=== PATIENT | male | born 1965 | race Caucasian/White ===

== ENCOUNTER 2023-06-02 01:13 | Inpatient (IN) | payer OTHER ==
[2023-06-02 01:34] LABS: #Eosinphils 0.1 thou/uL (0.0-0.7); #Monocytes 0.8 thou/uL (0.11-0.59); #Neutrophils 7.5 thou/uL (1.40-6.50); %Basophils 0.3 % (0.0-1.0); %Eosinophils 0.7 % (0.0-10.0); %Lymphocytes 27.5 % (21.0-51.0); %Monocytes 6.4 % (0.0-10.0); %Neutrophils 63.5 % (42.0-75.0); Hematocrit 42.9 % (42.0-52.0); Hemoglobin 15.1 g/dL (14.0-18.0); Mean Corpuscular HGB CONC 35.2 g/dL (32.0-36.0); Mean Corpuscular Hemoglobin 33.7 pg (27.0-31.0); Mean Corpuscular Volume 95.8 fl (78.0-98.0); Mean Platelet Volume 9.8 fL (7.4-10.4); Platelet Count 190 10x3/uL (130-400); RBC Distribution Width 12.4 % (11.5-14.5); Red Blood Cell (RBC) Count 4.48 mill/uL (4.70-6.10); White Blood Cell (WBC) Count 11.8 10x3/uL (4.8-10.8)
[2023-06-02 01:52] LABS: ALT (SGPT) 243 U/L (8-55); AST (SGOT) 236 U/L (5-34); Albumin 3.6 g/dL (3.5-5.0); Alcohol 232.5 mg/dL (Less than 10); Alkaline Phosphatase 57 U/L (40-110); Anion Gap 18 mmol/L (10-20); BUN (Urea Nitrogen) 12 mg/dL (8.4-25.7); Calc. Creatinine Clearance 0 mL/min (70-130); Calcium 8.1 mg/dL (7.8-10.44); Carbon Dioxide 15 mmol/L (22-29); Chloride 106 mmol/L (98-107); Estimated GFR 81; Globulin 2.4 g/dL (2.4-3.5); Glucose 153 mg/dL (70-105); Potassium 3.6 mmol/L (3.5-5.1); Sodium 135 mmol/L (136-145)
[2023-06-02] MEDS ORDERED: Boostrix 0.5 ML (Tdap) VIAL (>/=7 yrs of age) ONE (01:55)
[2023-06-02] MEDS ORDERED: CEFAZOLIN 2 GM VIAL ONE (01:55)
[2023-06-02] MEDS ORDERED: Calcium Chloride 1 GM/10 ML Abboject SYRINGE ONE ×3 (01:55→02:05)
[2023-06-02 01:58] LABS: Actual Bicarbonate (HCO3a) 19.3 mEq/L (22-28); Analyzer IN Cardio ER; Base Excess (BEa) -7.6 mEq/L (-2.0 to +3.0); CO2 Tension 44.2 mmHg (35.0-45.0); Calcium, Ionized (arterial) 0.83 mmol/L (1.12-1.30); Carboxyhemoglobin (COHb) 2.1 gm% (0.0-3.0); Hematocrit-ABG 44 % (42.0-52.0); Hemoglobin (Hb) 14.8 g/dL (14.0-18.0); O2 Tension (PaO2), arterial 348.3 mmHg (80.0-100.0); Potassium - ABG Lab 3.27 mmol/L (3.70-5.30); pH, Arterial 7.258 (7.35-7.45)
[2023-06-02 01:59] LABS: Puncture Site RBA
[2023-06-02] MEDS ORDERED: Ketamine 50 MG/ML (10ML VIAL) ONE (01:59)
[2023-06-02] MEDS ORDERED: Lidocaine 1% MPF 2 ML VIAL ONE (02:14)
[2023-06-02] MEDS ORDERED: Dextrose 50% Abboject 50 ML SYRINGE SLOW IVP PRN (02:30)
[2023-06-02] MEDS ORDERED: Dextrose 5% in Water 1,000 ML IV PRN (02:30)
[2023-06-02] MEDS ORDERED: Glucagon 1 MG/ML KIT IM PRN (02:30)
[2023-06-02] MEDS ORDERED: Ipratropium/Albuterol 3 ML NEB NEB PRN (02:30)
[2023-06-02] MEDS ORDERED: Ventilator Sedation Protocol 1 EACH FS ONE (02:36)
[2023-06-02] MEDS ORDERED: Morphine 2 MG/ML VIAL SLOW IVP PRN (03:00)
[2023-06-02] MEDS ORDERED: Fentanyl BOLUS 250 ML IVPB PRN (03:00)
[2023-06-02] MEDS ORDERED: DISCONTINUE PREVIOUS NARCOTIC PAIN MEDICATIONS AND BENZODIAZEPINES FS SCH (03:00)
[2023-06-02] MEDS ORDERED: Propofol BOLUS 1,000 MG/100 ML VIAL IV PRN (03:00)
[2023-06-02 03:09] LABS: Bacteria/HPF None Seen HPF (None Seen); Bilirubin Negative (Negative); Blood, Urine 2+ (Negative); CAUTI Indications for Culture Dysuria,urgency,freq; Clarity Clear (Clear); Glucose, Urine (Dipstick) Normal (Negative); Ketone, Urine Negative (Negative); Leukocyte Negative Leu/uL (Negative); Nitrite Negative (Negative); Protein, Urine (Dipstick) 30 mg/dL (Neg-Trace); RBC/HPF 0-3 HPF (0-3); Specific Gravity, Urine 1.012 (1.002-1.036); Squamous Epithelial 0-3 HPF (0-3); Urobilinogen Normal mg/dL (Less than 2); WBC/HPF 0-3 HPF (0-3); pH, Urine 5.5 (5.0-9.0)
[2023-06-02 03:10] LABS: Urine Culture Reflex No No
[2023-06-02] MEDS: Sodium Chloride 0.9% 1,000 ML IV SCH ×3 (05:11→21:03)
[2023-06-02] MEDS: Thiamine HCl 200 MG/2 ML VIAL SLOW IVP SCH (05:17)
[2023-06-02 05:20] LABS: Lactic Acid 2.3 mmol/L (0.5-2.2)
[2023-06-02] MEDS: Lorazepam 2 MG/ML VIAL SLOW IVP PRN (09:45)
[2023-06-02] MEDS: Folic Acid 1 MG TAB PO SCH (10:04)
[2023-06-02] MEDS: Famotidine/PF 20 mg/2ml Vial SLOW IVP SCH ×2 (10:05→21:05)
[2023-06-02] MEDS ORDERED: Iopamidol-370 76% 500 ML MDV (1 ML CHARGE) ONE (11:09)
[2023-06-02] MEDS: Propofol 1,000 MG/100 ML VIAL IV PRN ×2 (11:11→21:04)
[2023-06-02] MEDS: Multivit, Chewable SF 1 TAB PO SCH (11:11)
[2023-06-02 19:36] LABS: Amphetamine Not Detected (NotDetected); Barbiturates Screen Not Detected (NotDetected); Benzodiazepine Screen Not Detected (NotDetected); Cocaine Metabolite Screen Not Detected (NotDetected); Methadone Not Detected (NotDetected); Methamphetamine Not Detected (NotDetected); Opiate Screen Not Detected (NotDetected); Oxycodone Screen Not Detected (NotDetected); Phencyclidine (PCP) Not Detected (NotDetected); THC/Cannabinoid Screen Not Detected (NotDetected); Tricyclic Screen Not Detected (NotDetected)
[2023-06-03] MEDS: Fentanyl CADD 100 ML IV SCH (00:08)
[2023-06-03] MEDS: Sodium Chloride 0.9% 1,000 ML IV SCH ×4 (03:58→20:00)
[2023-06-03] MEDS: Thiamine HCl 200 MG/2 ML VIAL SLOW IVP SCH (04:00)
[2023-06-03 04:17] LABS: #Monocytes 0.8 thou/uL (0.11-0.59); #Neutrophils 4.4 thou/uL (1.40-6.50); %Basophils 0.2 % (0.0-1.0); %Eosinophils 0.2 % (0.0-10.0); %Monocytes 13.5 % (0.0-10.0); %Neutrophils 72.8 % (42.0-75.0); Hematocrit 43.1 % (42.0-52.0); Hemoglobin 14.7 g/dL (14.0-18.0); Mean Corpuscular HGB CONC 34.1 g/dL (32.0-36.0); Mean Corpuscular Hemoglobin 32.7 pg (27.0-31.0); Mean Platelet Volume 10.5 fL (7.4-10.4); Platelet Count 107 10x3/uL (130-400); RBC Distribution Width 13.4 % (11.5-14.5); Red Blood Cell (RBC) Count 4.49 mill/uL (4.70-6.10)
[2023-06-03 04:35] LABS: Lactic Acid 1.6 mmol/L (0.5-2.2)
[2023-06-03 04:43] LABS: ALT (SGPT) 141 U/L (8-55); AST (SGOT) 101 U/L (5-34); Albumin 3.2 g/dL (3.5-5.0); Alkaline Phosphatase 48 U/L (40-110); Anion Gap 10 mmol/L (10-20); BUN (Urea Nitrogen) 12 mg/dL (8.4-25.7); Bilirubin, Total 1.7 mg/dL (0.2-1.2); CK (CPK) 1019 U/L (30-200); Calc. Creatinine Clearance 194 mL/min (70-130); Calcium 8.1 mg/dL (7.8-10.44); Carbon Dioxide 25 mmol/L (22-29); Chloride 110 mmol/L (98-107); Estimated GFR 105; Glucose 97 mg/dL (70-105); Magnesium 1.7 mg/dL (1.6-2.6); Phosphorus 2.4 mg/dL (2.3-4.7); Potassium 4.1 mmol/L (3.5-5.1); Protein, Total 5.2 g/dL (6.0-8.3); Sodium 141 mmol/L (136-145)
[2023-06-03 05:20] LABS: CellaVision Operator ID lab.abc; Platelet Adequacy Comment Platelets Decreased; RBC Morphology Within Normal Limits
[2023-06-03] MEDS ORDERED: Dexmedetomidine 400 MCG, Admixture Fee 1 EACH in Sodium Chloride 0.9% 96 ML IVPB SCH (09:00)
[2023-06-03] MEDS: Famotidine/PF 20 mg/2ml Vial SLOW IVP SCH ×2 (09:22→19:16)
[2023-06-03] MEDS: Folic Acid 1 MG TAB PO SCH (09:22)
[2023-06-03] MEDS: Multivit, Chewable SF 1 TAB PO SCH (09:22)
[2023-06-03] MEDS: Lorazepam 2 MG/ML VIAL SLOW IVP SCH ×3 (09:23→19:16)
[2023-06-03] MEDS: Lorazepam 2 MG/ML VIAL SLOW IVP PRN (14:40)
[2023-06-03] MEDS ORDERED: Sodium Chloride 0.9% 500 ML IV SCH (20:00)
[2023-06-04] MEDS: Propofol 1,000 MG/100 ML VIAL IV PRN ×5 (02:04→22:58)
[2023-06-04] MEDS: Fentanyl CADD 100 ML IV SCH (02:06)
[2023-06-04] MEDS: Sodium Chloride 0.9% 1,000 ML IV SCH ×4 (02:06→22:46)
[2023-06-04] MEDS: Lorazepam 2 MG/ML VIAL SLOW IVP SCH ×4 (02:26→21:05)
[2023-06-04] MEDS: Thiamine HCl 200 MG/2 ML VIAL SLOW IVP SCH (04:02)
[2023-06-04 04:54] LABS: Anion Gap 10 mmol/L (10-20); BUN (Urea Nitrogen) 14 mg/dL (8.4-25.7); Calc. Creatinine Clearance 199 mL/min (70-130); Calcium 8.2 mg/dL (7.8-10.44); Carbon Dioxide 25 mmol/L (22-29); Chloride 111 mmol/L (98-107); Estimated GFR 106; Glucose 96 mg/dL (70-105); Potassium 4.2 mmol/L (3.5-5.1); Sodium 142 mmol/L (136-145)
[2023-06-04] MEDS ORDERED: Calcium Chloride 13.6 MEQ in Sodium Chloride 0.9% 100 ML IVPB SCH (05:45)
[2023-06-04 05:48] LABS: #Monocytes 0.8 thou/uL (0.11-0.59); #Neutrophils 4.6 thou/uL (1.40-6.50); %Basophils 0.3 % (0.0-1.0); %Eosinophils 0.3 % (0.0-10.0); %Lymphocytes 9.8 % (21.0-51.0); %Monocytes 13.3 % (0.0-10.0); Hematocrit 39.4 % (42.0-52.0); Hemoglobin 13.2 g/dL (14.0-18.0); Mean Corpuscular HGB CONC 33.5 g/dL (32.0-36.0); Mean Corpuscular Hemoglobin 32.4 pg (27.0-31.0); Mean Corpuscular Volume 96.8 fl (78.0-98.0); Mean Platelet Volume 10.4 fL (7.4-10.4); RBC Distribution Width 13.3 % (11.5-14.5); Red Blood Cell (RBC) Count 4.07 mill/uL (4.70-6.10)
[2023-06-04 05:50] LABS: Platelet Count 97 10x3/uL (130-400)
[2023-06-04 07:06] LABS: Actual Bicarbonate (HCO3a) 25.3 mEq/L (22-28); Base Excess (BEa) -2.1 mEq/L (-2.0 to +3.0); Calcium, Ionized (arterial) 1.16 mmol/L (1.12-1.30); Hematocrit-ABG 41 % (42.0-52.0); Hemoglobin (Hb) 14.1 g/dL (14.0-18.0); O2 Tension (PaO2), arterial 63.1 mmHg (80.0-100.0); Potassium - ABG Lab 4.01 mmol/L (3.70-5.30); pH, Arterial 7.288 (7.35-7.45)
[2023-06-04 07:14] LABS: Puncture Site RRA
[2023-06-04] MEDS: Folic Acid 1 MG TAB PO SCH (08:32)
[2023-06-04] MEDS: Famotidine/PF 20 mg/2ml Vial SLOW IVP SCH ×2 (08:32→20:38)
[2023-06-04] MEDS: Multivit, Chewable SF 1 TAB PO SCH (09:46)
[2023-06-05 04:28] LABS: #Eosinphils 0.1 thou/uL (0.0-0.7); #Monocytes 0.7 thou/uL (0.11-0.59); #Neutrophils 3.7 thou/uL (1.40-6.50); %Basophils 0.6 % (0.0-1.0); %Eosinophils 2.2 % (0.0-10.0); %Lymphocytes 9.6 % (21.0-51.0); %Monocytes 13.7 % (0.0-10.0); %Neutrophils 73.5 % (42.0-75.0); Hematocrit 37.4 % (42.0-52.0); Hemoglobin 12.5 g/dL (14.0-18.0); Mean Corpuscular HGB CONC 33.4 g/dL (32.0-36.0); Mean Corpuscular Hemoglobin 32.4 pg (27.0-31.0); Mean Corpuscular Volume 96.9 fl (78.0-98.0); Mean Platelet Volume 10.4 fL (7.4-10.4); Platelet Count 103 10x3/uL (130-400); RBC Distribution Width 13.1 % (11.5-14.5); Red Blood Cell (RBC) Count 3.86 mill/uL (4.70-6.10)
[2023-06-05] MEDS: Lorazepam 2 MG/ML VIAL SLOW IVP SCH ×4 (04:42→20:08)
[2023-06-05 04:47] LABS: Anion Gap 12 mmol/L (10-20); BUN (Urea Nitrogen) 14 mg/dL (8.4-25.7); CK (CPK) 352 U/L (30-200); Calc. Creatinine Clearance 222 mL/min (70-130); Calcium 8.3 mg/dL (7.8-10.44); Carbon Dioxide 25 mmol/L (22-29); Chloride 110 mmol/L (98-107); Estimated GFR 109; Glucose 82 mg/dL (70-105); Potassium 3.8 mmol/L (3.5-5.1); Sodium 143 mmol/L (136-145)
[2023-06-05] MEDS: Thiamine HCl 200 MG/2 ML VIAL SLOW IVP SCH (05:03)
[2023-06-05] MEDS: Sodium Chloride 0.9% 1,000 ML IV SCH ×3 (05:03→17:08)
[2023-06-05] MEDS: Propofol 1,000 MG/100 ML VIAL IV PRN ×4 (06:02→20:11)
[2023-06-05 08:07] LABS: Actual Bicarbonate (HCO3a) 23.2 mEq/L (22-28); Base Excess (BEa) -2.5 mEq/L (-2.0 to +3.0); CO2 Tension 43.4 mmHg (35.0-45.0); Calcium, Ionized (arterial) 1.15 mmol/L (1.12-1.30); Carboxyhemoglobin (COHb) 0.7 gm% (0.0-3.0); Hematocrit-ABG 41 % (42.0-52.0); Hemoglobin (Hb) 13.8 g/dL (14.0-18.0); Potassium - ABG Lab 3.66 mmol/L (3.70-5.30); pH, Arterial 7.345 (7.35-7.45)
[2023-06-05 08:20] LABS: Puncture Site LRA
[2023-06-05] MEDS: Folic Acid 1 MG TAB PO SCH (09:41)
[2023-06-05] MEDS: Multivit, Chewable SF 1 TAB PO SCH (09:42)
[2023-06-05] MEDS: Famotidine/PF 20 mg/2ml Vial SLOW IVP SCH ×2 (09:42→20:11)
[2023-06-05] MEDS ORDERED: Fentanyl CADD 100 ML ONE (18:08)
[2023-06-06] MEDS: Sodium Chloride 0.9% 1,000 ML IV SCH ×3 (00:29→12:11)
[2023-06-06] MEDS: Lorazepam 2 MG/ML VIAL SLOW IVP SCH ×4 (02:34→21:55)
[2023-06-06] MEDS: Propofol 1,000 MG/100 ML VIAL IV PRN ×2 (02:56→12:14)
[2023-06-06 04:19] LABS: Anion Gap 10 mmol/L (10-20); BUN (Urea Nitrogen) 16 mg/dL (8.4-25.7); Calc. Creatinine Clearance 208 mL/min (70-130); Calcium 8.1 mg/dL (7.8-10.44); Carbon Dioxide 28 mmol/L (22-29); Chloride 113 mmol/L (98-107); Estimated GFR 107; Glucose 111 mg/dL (70-105); Potassium 3.7 mmol/L (3.5-5.1); Sodium 147 mmol/L (136-145)
[2023-06-06] MEDS: Thiamine HCl 200 MG/2 ML VIAL SLOW IVP SCH (05:42)
[2023-06-06] MEDS ORDERED: Vecuronium 10 MG VIAL IVP SCH (06:00)
[2023-06-06] MEDS ORDERED: Midazolam HCl 2 mg/2 ml Vial SLOW IVP SCH (06:00)
[2023-06-06 08:01] LABS: Actual Bicarbonate (HCO3a) 27.2 mEq/L (22-28); Base Excess (BEa) 1.5 mEq/L (-2.0 to +3.0); CO2 Tension 47.2 mmHg (35.0-45.0); Calcium, Ionized (arterial) 1.14 mmol/L (1.12-1.30); Carboxyhemoglobin (COHb) 0.5 gm% (0.0-3.0); Hematocrit-ABG 38 % (42.0-52.0); O2 Tension (PaO2), arterial 75.5 mmHg (80.0-100.0); pH, Arterial 7.379 (7.35-7.45)
[2023-06-06 08:02] LABS: Puncture Site RRA
[2023-06-06] MEDS ORDERED: Sterile Water 10 ML ONE (08:53)
[2023-06-06] MEDS: Multivit, Chewable SF 1 TAB PO SCH (09:55)
[2023-06-06] MEDS: Folic Acid 1 MG TAB PO SCH (09:56)
[2023-06-06] MEDS ORDERED: Piperacillin/Tazobactam 3.375 GM in Sodium Chloride 0.9% 100 ML IVPB SCH (11:30)
[2023-06-06] MEDS ORDERED: Piperacillin/Tazobactam 4.5 GM in Sodium Chloride 0.9% 100 ML IVPB SCH (12:00)
[2023-06-06] MEDS: Famotidine/PF 20 mg/2ml Vial SLOW IVP SCH ×2 (12:07→21:57)
[2023-06-06] MEDS: Piperacillin/Tazobactam 3.375 GM in Sodium Chloride 0.9% 100 ML IVPB SCH (16:21)
[2023-06-07] MEDS: Piperacillin/Tazobactam 3.375 GM in Sodium Chloride 0.9% 100 ML IVPB SCH ×3 (01:20→16:26)
[2023-06-07] MEDS: Sodium Chloride 0.9% 1,000 ML IV SCH ×3 (02:43→15:00)
[2023-06-07] MEDS: Lorazepam 2 MG/ML VIAL SLOW IVP SCH ×4 (02:53→22:00)
[2023-06-07 04:30] LABS: Anion Gap 11 mmol/L (10-20); BUN (Urea Nitrogen) 19 mg/dL (8.4-25.7); Calc. Creatinine Clearance 207 mL/min (70-130); Calcium 8.4 mg/dL (7.8-10.44); Carbon Dioxide 28 mmol/L (22-29); Chloride 111 mmol/L (98-107); Estimated GFR 106; Glucose 134 mg/dL (70-105); Potassium 3.6 mmol/L (3.5-5.1); Sodium 146 mmol/L (136-145)
[2023-06-07] MEDS: Thiamine HCl 200 MG/2 ML VIAL SLOW IVP SCH (05:40)
[2023-06-07 07:44] LABS: Actual Bicarbonate (HCO3a) 28.1 mEq/L (22-28); Base Excess (BEa) 1.9 mEq/L (-2.0 to +3.0); CO2 Tension 50.1 mmHg (35.0-45.0); Calcium, Ionized (arterial) 1.14 mmol/L (1.12-1.30); Carboxyhemoglobin (COHb) 0.4 gm% (0.0-3.0); Hematocrit-ABG 39 % (42.0-52.0); Hemoglobin (Hb) 13.2 g/dL (14.0-18.0); O2 Tension (PaO2), arterial 85.2 mmHg (80.0-100.0); Potassium - ABG Lab 3.66 mmol/L (3.70-5.30); pH, Arterial 7.366 (7.35-7.45)
[2023-06-07 07:46] LABS: ALV-art Gradient 208.675 mmHg (0-20); Puncture Site RRA
[2023-06-07] MEDS: Famotidine/PF 20 mg/2ml Vial SLOW IVP SCH ×2 (08:15→22:00)
[2023-06-07] MEDS: Multivit, Chewable SF 1 TAB PO SCH (08:16)
[2023-06-07] MEDS: Folic Acid 1 MG TAB PO SCH (08:16)
[2023-06-07] MEDS ORDERED: Furosemide 40 MG/4 ML VIAL SLOW IVP SCH ×2 (08:30→17:00)
[2023-06-07] MEDS: hydrALAZINE 20 MG/ML VIAL SLOW IVP PRN ×2 (14:47→15:07)
[2023-06-07] MEDS: Lorazepam 2 MG/ML VIAL SLOW IVP PRN (15:10)
[2023-06-07] MEDS: Labetalol HCl 100 MG/20 ML VIAL SLOW IVP PRN (15:37)
[2023-06-07] MEDS ORDERED: niCARdipine 25 MG in Sodium Chloride 0.9% 250 ML 250 ML IVPB SCH (16:00)
[2023-06-07] MEDS: niCARdipine 25 MG in Sodium Chloride 0.9% 250 ML 250 ML IVPB PRN ×2 (16:24→18:33)
[2023-06-07] MEDS ORDERED: FENTANYL 500 MCG/10 ML VIAL 2,000 MCG in Sodium Chloride 0.9% 60 ML IV PRN (16:55)
[2023-06-07] MEDS: Fentanyl CADD 100 ML IV SCH (17:16)
[2023-06-07 18:18] LABS: Anion Gap 12 mmol/L (10-20); BUN (Urea Nitrogen) 26 mg/dL (8.4-25.7); Calc. Creatinine Clearance 200 mL/min (70-130); Calcium 8.9 mg/dL (7.8-10.44); Carbon Dioxide 30 mmol/L (22-29); Chloride 106 mmol/L (98-107); Estimated GFR 105; Glucose 195 mg/dL (70-105); Phosphorus 2.3 mg/dL (2.3-4.7); Potassium 3.1 mmol/L (3.5-5.1); Sodium 145 mmol/L (136-145)
[2023-06-07] MEDS: Potassium Chloride 20 MEQ in Premix Bag 1 BAG IVPB SCH ×3 (18:38→23:07)
[2023-06-07] MEDS ORDERED: niCARdipine 50 MG, Admixture Fee 1 EACH in Sodium Chloride 0.9% 250 ML 230 ML IVPB PRN (18:47)
[2023-06-08] MEDS: Piperacillin/Tazobactam 3.375 GM in Sodium Chloride 0.9% 100 ML IVPB SCH ×3 (00:48→17:19)
[2023-06-08] MEDS: Potassium Chloride 20 MEQ in Premix Bag 1 BAG IVPB SCH (00:48)
[2023-06-08 03:59] LABS: #Eosinphils 0.1 thou/uL (0.0-0.7); %Basophils 0.4 % (0.0-1.0); %Eosinophils 0.9 % (0.0-10.0); %Lymphocytes 10.1 % (21.0-51.0); %Monocytes 12.3 % (0.0-10.0); %Neutrophils 74.7 % (42.0-75.0); Hematocrit 37.3 % (42.0-52.0); Hemoglobin 12.5 g/dL (14.0-18.0); Mean Corpuscular HGB CONC 33.5 g/dL (32.0-36.0); Mean Corpuscular Hemoglobin 31.9 pg (27.0-31.0); Mean Corpuscular Volume 95.2 fl (78.0-98.0); Mean Platelet Volume 10.3 fL (7.4-10.4); Platelet Count 162 10x3/uL (130-400); RBC Distribution Width 12.6 % (11.5-14.5); Red Blood Cell (RBC) Count 3.92 mill/uL (4.70-6.10)
[2023-06-08 04:25] LABS: Anion Gap 10 mmol/L (10-20); BUN (Urea Nitrogen) 31 mg/dL (8.4-25.7); Calc. Creatinine Clearance 200 mL/min (70-130); Calcium 9.1 mg/dL (7.8-10.44); Carbon Dioxide 35 mmol/L (22-29); Chloride 106 mmol/L (98-107); Estimated GFR 105; Glucose 127 mg/dL (70-105); Magnesium 2.2 mg/dL (1.6-2.6); Potassium 3.5 mmol/L (3.5-5.1); Sodium 147 mmol/L (136-145)
[2023-06-08 04:28] LABS: Phosphorus 2.3 mg/dL (2.3-4.7)
[2023-06-08] MEDS ORDERED: Electrolyte Replacement Protocol 1 EACH FS SCH (09:00)
[2023-06-08] MEDS ORDERED: Potassium Chloride 20 MEQ TAB PER TUBE SCH (09:15)
[2023-06-08] MEDS: Lorazepam 2 MG/ML VIAL SLOW IVP SCH ×3 (09:18→20:50)
[2023-06-08] MEDS: Polyethylene Glycol 3350 17 GM Packet PER TUBE SCH (09:19)
[2023-06-08] MEDS: Famotidine/PF 20 mg/2ml Vial SLOW IVP SCH ×2 (09:19→20:49)
[2023-06-08] MEDS: Amlodipine 5 MG TAB PER TUBE SCH (09:19)
[2023-06-08] MEDS: Senokot S 8.6-50 MG TAB PO SCH ×2 (09:19→20:49)
[2023-06-08] MEDS: Labetalol HCl 100 MG/20 ML VIAL SLOW IVP PRN (21:16)
[2023-06-09] MEDS: Piperacillin/Tazobactam 3.375 GM in Sodium Chloride 0.9% 100 ML IVPB SCH ×3 (01:12→17:05)
[2023-06-09 03:50] LABS: #Eosinphils 0.2 thou/uL (0.0-0.7); #Neutrophils 5.3 thou/uL (1.40-6.50); %Basophils 0.4 % (0.0-1.0); %Eosinophils 2.4 % (0.0-10.0); %Lymphocytes 13.2 % (21.0-51.0); %Monocytes 12.6 % (0.0-10.0); %Neutrophils 69.3 % (42.0-75.0); Hematocrit 37.1 % (42.0-52.0); Hemoglobin 12.6 g/dL (14.0-18.0); Mean Corpuscular Hemoglobin 32.7 pg (27.0-31.0); Mean Corpuscular Volume 96.4 fl (78.0-98.0); Mean Platelet Volume 10.2 fL (7.4-10.4); Platelet Count 166 10x3/uL (130-400); RBC Distribution Width 12.8 % (11.5-14.5); Red Blood Cell (RBC) Count 3.85 mill/uL (4.70-6.10); White Blood Cell (WBC) Count 7.6 10x3/uL (4.8-10.8)
[2023-06-09] MEDS: hydrALAZINE 20 MG/ML VIAL SLOW IVP PRN ×4 (04:04→21:54)
[2023-06-09 04:11] LABS: Phosphorus 3.5 mg/dL (2.3-4.7)
[2023-06-09 04:12] LABS: Anion Gap 12 mmol/L (10-20); BUN (Urea Nitrogen) 34 mg/dL (8.4-25.7); Calc. Creatinine Clearance 213 mL/min (70-130); Calcium 8.7 mg/dL (7.8-10.44); Carbon Dioxide 32 mmol/L (22-29); Chloride 109 mmol/L (98-107); Estimated GFR 107; Glucose 137 mg/dL (70-105); Magnesium 2.3 mg/dL (1.6-2.6); Potassium 3.6 mmol/L (3.5-5.1); Sodium 149 mmol/L (136-145)
[2023-06-09] MEDS: Lorazepam 2 MG/ML VIAL SLOW IVP SCH (09:52)
[2023-06-09] MEDS: Polyethylene Glycol 3350 17 GM Packet PER TUBE SCH (09:53)
[2023-06-09] MEDS: Senokot S 8.6-50 MG TAB PO SCH ×2 (09:53→21:03)
[2023-06-09] MEDS: Amlodipine 5 MG TAB PER TUBE SCH (09:56)
[2023-06-09] MEDS: Famotidine/PF 20 mg/2ml Vial SLOW IVP SCH ×2 (09:57→21:01)
[2023-06-09] MEDS ORDERED: Morphine 4 MG/ML VIAL SLOW IVP SCH (11:45)
[2023-06-09] MEDS: Labetalol HCl 100 MG/20 ML VIAL SLOW IVP PRN ×2 (15:03→19:41)
[2023-06-09] MEDS: Morphine 2 MG/ML VIAL SLOW IVP PRN ×2 (17:05→21:06)
[2023-06-09] MEDS: Lorazepam 2 MG/ML VIAL SLOW IVP PRN (19:39)
[2023-06-09] MEDS: Amantadine HCl 100 mg Capsule PO SCH (21:03)
[2023-06-09] MEDS ORDERED: Metoclopramide HCl 10 MG/2 ML VIAL IVP SCH (22:15)
[2023-06-10] MEDS: Labetalol HCl 100 MG/20 ML VIAL SLOW IVP PRN ×2 (00:30→21:54)
[2023-06-10] MEDS: Morphine 2 MG/ML VIAL SLOW IVP PRN ×4 (01:09→18:02)
[2023-06-10] MEDS: hydrALAZINE 20 MG/ML VIAL SLOW IVP PRN ×3 (01:10→04:26)
[2023-06-10] MEDS: Piperacillin/Tazobactam 3.375 GM in Sodium Chloride 0.9% 100 ML IVPB SCH ×3 (01:11→16:59)
[2023-06-10 04:16] LABS: Hematocrit 45.9 % (42.0-52.0); Hemoglobin 15.4 g/dL (14.0-18.0); Mean Corpuscular HGB CONC 33.6 g/dL (32.0-36.0); Mean Corpuscular Hemoglobin 31.8 pg (27.0-31.0); Mean Corpuscular Volume 94.6 fl (78.0-98.0); Mean Platelet Volume 9.9 fL (7.4-10.4); Platelet Count 242 10x3/uL (130-400); RBC Distribution Width 13.2 % (11.5-14.5); Red Blood Cell (RBC) Count 4.85 mill/uL (4.70-6.10); White Blood Cell (WBC) Count 12.6 10x3/uL (4.8-10.8)
[2023-06-10 04:20] LABS: Delete Auto Diff?? YES; Manual Diff?? YES
[2023-06-10] MEDS: Lorazepam 2 MG/ML VIAL SLOW IVP PRN ×3 (04:24→21:54)
[2023-06-10 04:37] LABS: Anion Gap 15 mmol/L (10-20); BUN (Urea Nitrogen) 33 mg/dL (8.4-25.7); Calc. Creatinine Clearance 203 mL/min (70-130); Calcium 9.1 mg/dL (7.8-10.44); Carbon Dioxide 27 mmol/L (22-29); Chloride 112 mmol/L (98-107); Estimated GFR 105; Glucose 156 mg/dL (70-105); Potassium 3.5 mmol/L (3.5-5.1); Sodium 150 mmol/L (136-145)
[2023-06-10 04:47] LABS: Band 7 % (5-11); CellaVision Operator ID LAB.CLH1; Lymphocytes 4 % (21-51); Monocytes 4 % (0-10); Neutrophil 83 % (42-75); Platelet Adequacy Comment Platelets Normal; Polychromasia SLIGHT = 2-3 cells HPF (0-2); Reactive Lymphocytes 2 % (0-10); Total Cell Count 101
[2023-06-10] MEDS: Potassium Chloride 20 MEQ in Premix Bag 1 BAG IVPB SCH ×2 (08:25→10:43)
[2023-06-10] MEDS: Amantadine HCl 100 mg Capsule PO SCH ×2 (08:26→20:19)
[2023-06-10] MEDS: Famotidine/PF 20 mg/2ml Vial SLOW IVP SCH ×2 (08:26→20:24)
[2023-06-10] MEDS: Amlodipine 5 MG TAB PER TUBE SCH (08:26)
[2023-06-10] MEDS: Senokot S 8.6-50 MG TAB PO SCH ×2 (08:27→20:18)
[2023-06-10] MEDS: Polyethylene Glycol 3350 17 GM Packet PER TUBE SCH (08:27)
[2023-06-10] MEDS ORDERED: Acetaminophen/Codeine 30-300mg Tablet PO PRN (10:25)
[2023-06-10] MEDS ORDERED: Dexmedetomidine In 0.9 % NaCl 100 ML IVPB SCH (10:30)
[2023-06-10] MEDS: traMADol HCl 50 MG TAB PO SCH ×2 (10:42→16:59)
[2023-06-10] MEDS: Dexmedetomidine 400 MCG, Admixture Fee 1 EACH in Sodium Chloride 0.9% 96 ML IVPB SCH ×2 (11:03→20:19)
[2023-06-10] MEDS: tiZANidine HCl 4 MG TAB PO SCH ×2 (14:56→20:18)
[2023-06-10 16:49] LABS: Potassium 3.6 mmol/L (3.5-5.1)
[2023-06-10] MEDS: Metoclopramide HCl 10 MG/2 ML VIAL IVP SCH (20:34)
[2023-06-11] MEDS: traMADol HCl 50 MG TAB PO SCH ×2 (00:13→05:12)
[2023-06-11] MEDS: Piperacillin/Tazobactam 3.375 GM in Sodium Chloride 0.9% 100 ML IVPB SCH ×3 (01:01→17:15)
[2023-06-11 04:10] LABS: #Basophils 0.1 thou/uL (0.0-0.2); #Monocytes 1.3 thou/uL (0.11-0.59); #Neutrophils 11.3 thou/uL (1.40-6.50); %Basophils 0.5 % (0.0-1.0); %Eosinophils 0.1 % (0.0-10.0); %Lymphocytes 8.2 % (21.0-51.0); %Neutrophils 80.9 % (42.0-75.0); Hematocrit 45.5 % (42.0-52.0); Mean Corpuscular Hemoglobin 31.9 pg (27.0-31.0); Mean Corpuscular Volume 96.8 fl (78.0-98.0); Mean Platelet Volume 10.3 fL (7.4-10.4); Platelet Count 220 10x3/uL (130-400); RBC Distribution Width 13.2 % (11.5-14.5); White Blood Cell (WBC) Count 13.9 10x3/uL (4.8-10.8)
[2023-06-11 04:32] LABS: Phosphorus 3.9 mg/dL (2.3-4.7)
[2023-06-11 04:41] LABS: Anion Gap 15 mmol/L (10-20); BUN (Urea Nitrogen) 41 mg/dL (8.4-25.7); Calc. Creatinine Clearance 168 mL/min (70-130); Calcium 8.4 mg/dL (7.8-10.44); Carbon Dioxide 29 mmol/L (22-29); Chloride 112 mmol/L (98-107); Estimated GFR 101; Glucose 142 mg/dL (70-105); Magnesium 2.5 mg/dL (1.6-2.6); Potassium 3.3 mmol/L (3.5-5.1)
[2023-06-11 04:42] LABS: Sodium 153 mmol/L (136-145)
[2023-06-11] MEDS: Metoclopramide HCl 10 MG/2 ML VIAL IVP SCH (05:11)
[2023-06-11] MEDS: Morphine 2 MG/ML VIAL SLOW IVP PRN (07:07)
[2023-06-11] MEDS: Potassium Chloride 20 MEQ in Premix Bag 1 BAG IVPB SCH ×2 (07:52→09:55)
[2023-06-11] MEDS: Amlodipine 5 MG TAB PER TUBE SCH (08:00)
[2023-06-11] MEDS: tiZANidine HCl 4 MG TAB PO SCH ×3 (08:00→20:00)
[2023-06-11] MEDS ORDERED: Potassium Chloride 20 MEQ TAB PO SCH (08:00)
[2023-06-11] MEDS: Famotidine/PF 20 mg/2ml Vial SLOW IVP SCH ×2 (08:01→20:00)
[2023-06-11] MEDS: Amantadine HCl 100 mg Capsule PO SCH ×2 (08:01→20:00)
[2023-06-11] MEDS: Senokot S 8.6-50 MG TAB PO SCH ×2 (08:01→20:00)
[2023-06-11] MEDS: Polyethylene Glycol 3350 17 GM Packet PER TUBE SCH (08:02)
[2023-06-11] MEDS ORDERED: GASTROGRAFIN 30 ML BOT ONE (09:05)
[2023-06-11] MEDS ORDERED: Iopamidol-370 76% 500 ML MDV (1 ML CHARGE) ONE (09:05)
[2023-06-11] MEDS: Lorazepam 2 MG/ML VIAL SLOW IVP PRN (10:24)
[2023-06-11] MEDS ORDERED: Metoclopramide HCl 10 MG/2 ML VIAL IVP SCH (12:00)
[2023-06-11] MEDS: Neostigmine 0.5 MG in Admixture Fee 1 EACH SC SCH ×2 (13:36→19:55)
[2023-06-11] MEDS: Dexmedetomidine 400 MCG, Admixture Fee 1 EACH in Sodium Chloride 0.9% 96 ML IVPB SCH (14:02)
[2023-06-11] MEDS: Scopolamine 1.5 mg/72 hour Patch TD SCH (15:12)
[2023-06-11] MEDS: Ondansetron PF 4 MG/2 ML Vial IVP PRN (15:12)
[2023-06-11] MEDS ORDERED: Dextrose 5 %-0.45 % NaCl 1,000 ML IV SCH (17:30)
[2023-06-12] MEDS: Neostigmine 0.5 MG in Admixture Fee 1 EACH SC SCH ×4 (01:55→20:12)
[2023-06-12] MEDS: Piperacillin/Tazobactam 3.375 GM in Sodium Chloride 0.9% 100 ML IVPB SCH ×3 (01:55→16:30)
[2023-06-12 04:19] LABS: Anion Gap 13 mmol/L (10-20); BUN (Urea Nitrogen) 40 mg/dL (8.4-25.7); Calc. Creatinine Clearance 159 mL/min (70-130); Calcium 8.6 mg/dL (7.8-10.44); Carbon Dioxide 31 mmol/L (22-29); Chloride 112 mmol/L (98-107); Estimated GFR 100; Glucose 135 mg/dL (70-105); Potassium 3.5 mmol/L (3.5-5.1)
[2023-06-12 04:23] LABS: Sodium 152 mmol/L (136-145)
[2023-06-12] MEDS ORDERED: Dextrose 5 %-0.45 % NaCl 1,000 ML IV SCH (04:26)
[2023-06-12] MEDS: Morphine 2 MG/ML VIAL SLOW IVP PRN ×2 (04:49→10:55)
[2023-06-12] MEDS: Dextrose 5% in Water 1,000 ML IV SCH ×2 (07:58→22:41)
[2023-06-12] MEDS: Dexmedetomidine 400 MCG, Admixture Fee 1 EACH in Sodium Chloride 0.9% 96 ML IVPB SCH ×2 (07:59→17:15)
[2023-06-12] MEDS: Potassium Chloride 20 MEQ in Premix Bag 1 BAG IVPB SCH ×2 (07:59→10:17)
[2023-06-12] MEDS: Senokot S 8.6-50 MG TAB PO SCH ×2 (08:00→20:11)
[2023-06-12] MEDS ORDERED: Potassium Bicarbonate/Cit Ac 20 MEQ TAB PER TUBE SCH (08:00)
[2023-06-12] MEDS: tiZANidine HCl 4 MG TAB PO SCH ×3 (08:00→20:12)
[2023-06-12] MEDS: Famotidine/PF 20 mg/2ml Vial SLOW IVP SCH ×2 (08:00→20:11)
[2023-06-12] MEDS: Amlodipine 5 MG TAB PER TUBE SCH (08:00)
[2023-06-12] MEDS: Polyethylene Glycol 3350 17 GM Packet PER TUBE SCH (08:01)
[2023-06-12] MEDS: Amlodipine 10 MG TAB PER TUBE SCH (08:37)
[2023-06-12] MEDS: Hydrochlorothiazide 25 MG TAB PER TUBE SCH (09:12)
[2023-06-12] MEDS: Azithromycin 500 MG in Sodium Chloride 0.9% 250 ML 250 ML IVPB SCH (11:02)
[2023-06-12 16:39] LABS: Potassium 3.7 mmol/L (3.5-5.1)
[2023-06-13] MEDS: Piperacillin/Tazobactam 3.375 GM in Sodium Chloride 0.9% 100 ML IVPB SCH ×3 (00:05→16:56)
[2023-06-13] MEDS: Neostigmine 0.5 MG in Admixture Fee 1 EACH SC SCH ×4 (01:00→20:15)
[2023-06-13] MEDS: Morphine 2 MG/ML VIAL SLOW IVP PRN ×3 (01:16→15:37)
[2023-06-13 04:41] LABS: #Basophils 0.1 thou/uL (0.0-0.2); #Eosinphils 0.2 thou/uL (0.0-0.7); #Monocytes 0.9 thou/uL (0.11-0.59); #Neutrophils 12.2 thou/uL (1.40-6.50); %Basophils 0.4 % (0.0-1.0); %Monocytes 6.4 % (0.0-10.0); %Neutrophils 82.7 % (42.0-75.0); Hemoglobin 13.1 g/dL (14.0-18.0); Mean Platelet Volume 10.7 fL (7.4-10.4); Platelet Count 203 10x3/uL (130-400); RBC Distribution Width 13.1 % (11.5-14.5); White Blood Cell (WBC) Count 14.7 10x3/uL (4.8-10.8)
[2023-06-13 05:03] LABS: Anion Gap 13 mmol/L (10-20); BUN (Urea Nitrogen) 31 mg/dL (8.4-25.7); Calc. Creatinine Clearance 174 mL/min (70-130); Calcium 8.4 mg/dL (7.8-10.44); Carbon Dioxide 31 mmol/L (22-29); Chloride 112 mmol/L (98-107); Estimated GFR 102; Glucose 128 mg/dL (70-105); Potassium 3.7 mmol/L (3.5-5.1)
[2023-06-13 05:19] LABS: Sodium 152 mmol/L (136-145)
[2023-06-13] MEDS: Dextrose 5% in Water 1,000 ML IV SCH ×4 (05:47→20:55)
[2023-06-13] MEDS: Famotidine/PF 20 mg/2ml Vial SLOW IVP SCH ×2 (08:16→20:15)
[2023-06-13] MEDS: tiZANidine HCl 4 MG TAB PO SCH ×3 (08:18→20:15)
[2023-06-13] MEDS: Amlodipine 10 MG TAB PER TUBE SCH (08:18)
[2023-06-13] MEDS: Hydrochlorothiazide 25 MG TAB PER TUBE SCH (08:19)
[2023-06-13] MEDS: Senokot S 8.6-50 MG TAB PO SCH ×2 (08:39→20:16)
[2023-06-13] MEDS: Polyethylene Glycol 3350 17 GM Packet PER TUBE SCH (08:39)
[2023-06-13] MEDS ORDERED: Potassium Chloride 40 MEQ in Premix Bag 1 BAG IVPB SCH (09:45)
[2023-06-13] MEDS: Potassium Chloride 20 MEQ in Premix Bag 1 BAG IVPB SCH ×2 (10:18→11:59)
[2023-06-13] MEDS: Metoclopramide HCl 10 MG/2 ML VIAL IVP SCH ×3 (10:18→22:02)
[2023-06-13] MEDS: Azithromycin 500 MG in Sodium Chloride 0.9% 250 ML 250 ML IVPB SCH (11:57)
[2023-06-14] MEDS: Piperacillin/Tazobactam 3.375 GM in Sodium Chloride 0.9% 100 ML IVPB SCH ×2 (00:25→08:54)
[2023-06-14] MEDS: Lorazepam 2 MG/ML VIAL SLOW IVP PRN ×2 (00:27→20:58)
[2023-06-14] MEDS: Neostigmine 0.5 MG in Admixture Fee 1 EACH SC SCH ×2 (02:56→08:00)
[2023-06-14] MEDS: Metoclopramide HCl 10 MG/2 ML VIAL IVP SCH ×4 (03:00→21:08)
[2023-06-14 04:23] LABS: #Eosinphils 0.3 thou/uL (0.0-0.7); #Monocytes 0.6 thou/uL (0.11-0.59); #Neutrophils 6.8 thou/uL (1.40-6.50); %Basophils 0.4 % (0.0-1.0); %Lymphocytes 17.1 % (21.0-51.0); %Monocytes 6.7 % (0.0-10.0); %Neutrophils 72.2 % (42.0-75.0); Hematocrit 37.2 % (42.0-52.0); Hemoglobin 12.2 g/dL (14.0-18.0); Mean Corpuscular HGB CONC 32.8 g/dL (32.0-36.0); Mean Corpuscular Hemoglobin 31.8 pg (27.0-31.0); Mean Corpuscular Volume 96.9 fl (78.0-98.0); Mean Platelet Volume 10.7 fL (7.4-10.4); Platelet Count 177 10x3/uL (130-400); RBC Distribution Width 13.1 % (11.5-14.5); Red Blood Cell (RBC) Count 3.84 mill/uL (4.70-6.10); White Blood Cell (WBC) Count 9.4 10x3/uL (4.8-10.8)
[2023-06-14 04:40] LABS: INR-International Normal Ratio 1.2; Prothrombin Time 15.3 sec (12.0-14.7)
[2023-06-14 04:58] LABS: Phosphorus 3.5 mg/dL (2.3-4.7)
[2023-06-14 05:14] LABS: Anion Gap 11 mmol/L (10-20); BUN (Urea Nitrogen) 24 mg/dL (8.4-25.7); Calc. Creatinine Clearance 187 mL/min (70-130); Carbon Dioxide 30 mmol/L (22-29); Chloride 108 mmol/L (98-107); Potassium 3.5 mmol/L (3.5-5.1); Sodium 145 mmol/L (136-145)
[2023-06-14 05:15] LABS: ALT (SGPT) 62 U/L (8-55); AST (SGOT) 50 U/L (5-34); Albumin 2.9 g/dL (3.5-5.0); Alkaline Phosphatase 59 U/L (40-110); Bilirubin, Total 1.9 mg/dL (0.2-1.2); Calcium 8.3 mg/dL (7.8-10.44); Cholesterol 97 mg/dl (< 200 Desired); Estimated GFR 104; Globulin 2.3 g/dL (2.4-3.5); Glucose 106 mg/dL (70-105); HDL Cholesterol 17 mg/dL (>60 Neg Risk); Magnesium 2.2 mg/dL (1.6-2.6); Protein, Total 5.2 g/dL (6.0-8.3); Triglycerides 128 mg/dL (Less than 150)
[2023-06-14 05:16] LABS: Cardiac Risk 5.7 (Less than 4.5); LDL Cholesterol, Calculated 54 mg/dL
[2023-06-14] MEDS: Amlodipine 10 MG TAB PER TUBE SCH (08:55)
[2023-06-14] MEDS: Senokot S 8.6-50 MG TAB PO SCH ×2 (08:55→20:58)
[2023-06-14] MEDS: tiZANidine HCl 4 MG TAB PO SCH (08:55)
[2023-06-14] MEDS: Famotidine 20 MG TAB PER TUBE SCH ×2 (09:30→20:58)
[2023-06-14] MEDS: Polyethylene Glycol 3350 17 GM Packet PER TUBE SCH (09:31)
[2023-06-14] MEDS: Potassium Chloride 20 MEQ in Premix Bag 1 BAG IVPB SCH ×2 (09:31→11:00)
[2023-06-14] MEDS: Morphine 2 MG/ML VIAL SLOW IVP PRN ×2 (10:12→17:07)
[2023-06-14] MEDS: Dextrose 5% in Water 1,000 ML IV SCH ×2 (12:00→17:15)
[2023-06-14] MEDS: Scopolamine 1.5 mg/72 hour Patch TD SCH (15:12)
[2023-06-15] MEDS: Morphine 2 MG/ML VIAL SLOW IVP PRN ×2 (00:28→09:11)
[2023-06-15] MEDS: Dexmedetomidine 400 MCG, Admixture Fee 1 EACH in Sodium Chloride 0.9% 96 ML IVPB SCH ×3 (01:36→20:19)
[2023-06-15] MEDS: Metoclopramide HCl 10 MG/2 ML VIAL IVP SCH ×4 (03:48→21:31)
[2023-06-15] MEDS: Dextrose 5% in Water 1,000 ML IV SCH ×2 (03:49→14:50)
[2023-06-15 06:45] LABS: #Eosinphils 0.3 thou/uL (0.0-0.7); #Monocytes 0.7 thou/uL (0.11-0.59); #Neutrophils 5.8 thou/uL (1.40-6.50); %Basophils 0.5 % (0.0-1.0); %Eosinophils 3.1 % (0.0-10.0); %Lymphocytes 18.3 % (21.0-51.0); %Monocytes 8.6 % (0.0-10.0); %Neutrophils 68.9 % (42.0-75.0); Hematocrit 35.3 % (42.0-52.0); Hemoglobin 11.7 g/dL (14.0-18.0); Mean Corpuscular HGB CONC 33.1 g/dL (32.0-36.0); Mean Corpuscular Hemoglobin 31.9 pg (27.0-31.0); Mean Corpuscular Volume 96.2 fl (78.0-98.0); Mean Platelet Volume 10.9 fL (7.4-10.4); Platelet Count 167 10x3/uL (130-400); RBC Distribution Width 12.7 % (11.5-14.5); Red Blood Cell (RBC) Count 3.67 mill/uL (4.70-6.10); White Blood Cell (WBC) Count 8.5 10x3/uL (4.8-10.8)
[2023-06-15 07:07] LABS: Anion Gap 9 mmol/L (10-20); BUN (Urea Nitrogen) 18 mg/dL (8.4-25.7); Calc. Creatinine Clearance 211 mL/min (70-130); Calcium 8.2 mg/dL (7.8-10.44); Carbon Dioxide 29 mmol/L (22-29); Chloride 105 mmol/L (98-107); Estimated GFR 108; Glucose 100 mg/dL (70-105); Potassium 3.7 mmol/L (3.5-5.1); Sodium 139 mmol/L (136-145)
[2023-06-15] MEDS: Famotidine 20 MG TAB PER TUBE SCH (10:10)
[2023-06-15] MEDS: Amlodipine 10 MG TAB PER TUBE SCH (10:10)
[2023-06-15] MEDS: Polyethylene Glycol 3350 17 GM Packet PER TUBE SCH (10:12)
[2023-06-15] MEDS: Senokot S 8.6-50 MG TAB PO SCH ×2 (10:12→21:08)
[2023-06-15] MEDS: Lorazepam 2 MG/ML VIAL SLOW IVP PRN (11:15)
[2023-06-15] MEDS ORDERED: MD-Gastroview 120 ML BOT ONE (11:38)
[2023-06-15] MEDS ORDERED: Pantoprazole 40 MG VIAL IVP SCH (12:00)
[2023-06-15] MEDS: Ondansetron PF 4 MG/2 ML Vial IVP PRN (14:19)
[2023-06-15 15:51] LABS: Anion Gap 5 mmol/L (10-20); BUN (Urea Nitrogen) 17 mg/dL (8.4-25.7); Calc. Creatinine Clearance 199 mL/min (70-130); Calcium 8.3 mg/dL (7.8-10.44); Carbon Dioxide 33 mmol/L (22-29); Chloride 105 mmol/L (98-107); Estimated GFR 107; Glucose 112 mg/dL (70-105); Potassium 3.8 mmol/L (3.5-5.1); Sodium 139 mmol/L (136-145)
[2023-06-15] MEDS: Methylnaltrexone 12 MG/0.6 ML VIAL SC SCH (17:33)
[2023-06-16] MEDS: Dextrose 5% in Water 1,000 ML IV SCH ×3 (00:26→23:42)
[2023-06-16] MEDS: Lorazepam 2 MG/ML VIAL SLOW IVP PRN ×2 (00:30→20:34)
[2023-06-16] MEDS: Dexmedetomidine 400 MCG, Admixture Fee 1 EACH in Sodium Chloride 0.9% 96 ML IVPB SCH ×3 (04:46→21:37)
[2023-06-16] MEDS: Metoclopramide HCl 10 MG/2 ML VIAL IVP SCH ×4 (04:49→21:32)
[2023-06-16 05:15] LABS: #Eosinphils 0.2 thou/uL (0.0-0.7); #Monocytes 0.5 thou/uL (0.11-0.59); #Neutrophils 7.1 thou/uL (1.40-6.50); %Basophils 0.4 % (0.0-1.0); %Eosinophils 2.1 % (0.0-10.0); %Lymphocytes 14.4 % (21.0-51.0); %Monocytes 5.3 % (0.0-10.0); %Neutrophils 77.4 % (42.0-75.0); Hematocrit 35.6 % (42.0-52.0); Mean Corpuscular HGB CONC 33.7 g/dL (32.0-36.0); Mean Corpuscular Hemoglobin 31.9 pg (27.0-31.0); Mean Corpuscular Volume 94.7 fl (78.0-98.0); Mean Platelet Volume 11.5 fL (7.4-10.4); Platelet Count 174 10x3/uL (130-400); RBC Distribution Width 12.4 % (11.5-14.5); Red Blood Cell (RBC) Count 3.76 mill/uL (4.70-6.10); White Blood Cell (WBC) Count 9.2 10x3/uL (4.8-10.8)
[2023-06-16 06:05] LABS: Anion Gap 11 mmol/L (10-20); BUN (Urea Nitrogen) 16 mg/dL (8.4-25.7); Calc. Creatinine Clearance 208 mL/min (70-130); Calcium 8.5 mg/dL (7.8-10.44); Carbon Dioxide 29 mmol/L (22-29); Chloride 102 mmol/L (98-107); Estimated GFR 108; Glucose 101 mg/dL (70-105); Potassium 3.6 mmol/L (3.5-5.1); Sodium 138 mmol/L (136-145)
[2023-06-16] MEDS: Pantoprazole 40 MG VIAL IVP SCH (09:11)
[2023-06-16] MEDS: Amlodipine 10 MG TAB PER TUBE SCH (09:12)
[2023-06-16] MEDS: Polyethylene Glycol 3350 17 GM Packet PER TUBE SCH (09:13)
[2023-06-16] MEDS: Senokot S 8.6-50 MG TAB PO SCH ×2 (09:13→20:34)
[2023-06-17] MEDS: Metoclopramide HCl 10 MG/2 ML VIAL IVP SCH ×4 (04:29→21:54)
[2023-06-17 05:06] LABS: #Eosinphils 0.2 thou/uL (0.0-0.7); #Monocytes 0.5 thou/uL (0.11-0.59); #Neutrophils 6.1 thou/uL (1.40-6.50); %Basophils 0.4 % (0.0-1.0); %Eosinophils 1.9 % (0.0-10.0); %Monocytes 5.7 % (0.0-10.0); %Neutrophils 77.5 % (42.0-75.0); Hematocrit 34.6 % (42.0-52.0); Hemoglobin 11.8 g/dL (14.0-18.0); Mean Corpuscular HGB CONC 34.1 g/dL (32.0-36.0); Mean Corpuscular Volume 93.8 fl (78.0-98.0); Mean Platelet Volume 11.6 fL (7.4-10.4); Platelet Count 169 10x3/uL (130-400); RBC Distribution Width 12.3 % (11.5-14.5); Red Blood Cell (RBC) Count 3.69 mill/uL (4.70-6.10); White Blood Cell (WBC) Count 7.9 10x3/uL (4.8-10.8)
[2023-06-17 05:41] LABS: Anion Gap 8 mmol/L (10-20); BUN (Urea Nitrogen) 13 mg/dL (8.4-25.7); Calc. Creatinine Clearance 206 mL/min (70-130); Calcium 8.5 mg/dL (7.8-10.44); Carbon Dioxide 31 mmol/L (22-29); Chloride 104 mmol/L (98-107); Estimated GFR 109; Glucose 107 mg/dL (70-105); Potassium 3.8 mmol/L (3.5-5.1); Sodium 139 mmol/L (136-145)
[2023-06-17] MEDS: Dexmedetomidine 400 MCG, Admixture Fee 1 EACH in Sodium Chloride 0.9% 96 ML IVPB SCH ×2 (06:41→16:14)
[2023-06-17] MEDS: Lorazepam 2 MG/ML VIAL SLOW IVP PRN ×2 (07:31→17:46)
[2023-06-17] MEDS: Senokot S 8.6-50 MG TAB PO SCH ×2 (09:30→21:58)
[2023-06-17] MEDS: Pantoprazole 40 MG VIAL IVP SCH (09:32)
[2023-06-17] MEDS: Dextrose 5% in Water 1,000 ML IV SCH (09:35)
[2023-06-17] MEDS: Amlodipine 10 MG TAB PER TUBE SCH (09:38)
[2023-06-17] MEDS: Multivitamins, Adult 10 ML, MULTITRACE-4 CONC VIAL 1 ML in D15W-AA 5% with Lytes 2,000 ML IV SCH (14:11)
[2023-06-17 14:37] LABS: INR-International Normal Ratio 1.1; PTT 32.2 sec (22.9-36.1); Prothrombin Time 14.4 sec (12.0-14.7)
[2023-06-17] MEDS: Scopolamine 1.5 mg/72 hour Patch TD SCH (14:46)
[2023-06-17 14:54] LABS: ALT (SGPT) 84 U/L (8-55); AST (SGOT) 45 U/L (5-34); Albumin 3.3 g/dL (3.5-5.0); Alkaline Phosphatase 108 U/L (40-110); Anion Gap 10 mmol/L (10-20); BUN (Urea Nitrogen) 11 mg/dL (8.4-25.7); Bilirubin, Total 1.4 mg/dL (0.2-1.2); Calc. Creatinine Clearance 204 mL/min (70-130); Calcium 8.6 mg/dL (7.8-10.44); Carbon Dioxide 27 mmol/L (22-29); Chloride 107 mmol/L (98-107); Cholesterol 87 mg/dl (< 200 Desired); Estimated GFR 108; Globulin 2.8 g/dL (2.4-3.5); Glucose 109 mg/dL (70-105); HDL Cholesterol 22 mg/dL (>60 Neg Risk); LDL Cholesterol, Calculated 42 mg/dL; Magnesium 2.1 mg/dL (1.6-2.6); Phosphorus 2.7 mg/dL (2.3-4.7); Potassium 4.1 mmol/L (3.5-5.1); Protein, Total 6.1 g/dL (6.0-8.3); Sodium 140 mmol/L (136-145); Triglycerides 116 mg/dL (Less than 150)
[2023-06-17] MEDS: Methylnaltrexone 12 MG/0.6 ML VIAL SC SCH (16:12)
[2023-06-17] MEDS: Morphine 2 MG/ML VIAL SLOW IVP PRN (21:54)
[2023-06-17] MEDS ORDERED: Piperacillin/Tazobactam 3.375 GM in Sodium Chloride 0.9% 100 ML IVPB SCH (22:00)
[2023-06-17] MEDS ORDERED: Piperacillin/Tazobactam 4.5 GM in Sodium Chloride 0.9% 100 ML IVPB SCH (23:59)
[2023-06-18] MEDS: Dexmedetomidine 400 MCG, Admixture Fee 1 EACH in Sodium Chloride 0.9% 96 ML IVPB SCH ×3 (01:10→19:05)
[2023-06-18] MEDS: Morphine 2 MG/ML VIAL SLOW IVP PRN (02:00)
[2023-06-18] MEDS: Piperacillin/Tazobactam 3.375 GM in Sodium Chloride 0.9% 100 ML IVPB SCH ×3 (04:26→20:27)
[2023-06-18] MEDS: Metoclopramide HCl 10 MG/2 ML VIAL IVP SCH ×4 (04:26→22:00)
[2023-06-18 04:45] LABS: %Lymphocytes 11.7 % (21.0-51.0); %Neutrophils 78.8 % (42.0-75.0); Hematocrit 35.8 % (42.0-52.0); Hemoglobin 12.4 g/dL (14.0-18.0); Mean Corpuscular HGB CONC 34.6 g/dL (32.0-36.0); Mean Corpuscular Hemoglobin 31.6 pg (27.0-31.0); Mean Corpuscular Volume 91.3 fl (78.0-98.0); Mean Platelet Volume 11.9 fL (7.4-10.4); Platelet Count 157 10x3/uL (130-400); RBC Distribution Width 12.5 % (11.5-14.5); Red Blood Cell (RBC) Count 3.92 mill/uL (4.70-6.10); White Blood Cell (WBC) Count 9.5 10x3/uL (4.8-10.8)
[2023-06-18 04:46] LABS: #Eosinphils 0.1 thou/uL (0.0-0.7); #Monocytes 0.7 thou/uL (0.11-0.59); #Neutrophils 7.4 thou/uL (1.40-6.50); %Basophils 0.3 % (0.0-1.0); %Eosinophils 1.5 % (0.0-10.0); %Monocytes 7.2 % (0.0-10.0)
[2023-06-18 04:51] LABS: INR-International Normal Ratio 1.1; Prothrombin Time 14.2 sec (12.0-14.7)
[2023-06-18 05:03] LABS: PTT 21.6 sec (22.9-36.1)
[2023-06-18 05:06] LABS: Anion Gap 12 mmol/L (10-20); BUN (Urea Nitrogen) 15 mg/dL (8.4-25.7); Calc. Creatinine Clearance 190 mL/min (70-130); Calcium 8.6 mg/dL (7.8-10.44); Carbon Dioxide 27 mmol/L (22-29); Chloride 105 mmol/L (98-107); Estimated GFR 106; Glucose 112 mg/dL (70-105); Potassium 4.1 mmol/L (3.5-5.1); Sodium 140 mmol/L (136-145)
[2023-06-18 06:49] LABS: ALT (SGPT) 77 U/L (8-55); AST (SGOT) 39 U/L (5-34); Albumin 3.2 g/dL (3.5-5.0); Alkaline Phosphatase 109 U/L (40-110); Anion Gap 11 mmol/L (10-20); BUN (Urea Nitrogen) 15 mg/dL (8.4-25.7); Bilirubin, Total 1.3 mg/dL (0.2-1.2); Calc. Creatinine Clearance 193 mL/min (70-130); Calcium 8.4 mg/dL (7.8-10.44); Carbon Dioxide 28 mmol/L (22-29); Cardiac Risk 3.6 (Less than 4.5); Chloride 105 mmol/L (98-107); Cholesterol 76 mg/dl (< 200 Desired); Estimated GFR 108; Globulin 2.8 g/dL (2.4-3.5); Glucose 113 mg/dL (70-105); HDL Cholesterol 21 mg/dL (>60 Neg Risk); LDL Cholesterol, Calculated 37 mg/dL; Phosphorus 3.3 mg/dL (2.3-4.7); Sodium 140 mmol/L (136-145); Triglycerides 90 mg/dL (Less than 150)
[2023-06-18] MEDS ORDERED: Magnesium 2 GM/50 ML(in water) 2 GM in Premix Bag 1 BAG IVPB SCH (08:00)
[2023-06-18] MEDS: Pantoprazole 40 MG VIAL IVP SCH (09:01)
[2023-06-18] MEDS: Amlodipine 10 MG TAB PER TUBE SCH (09:02)
[2023-06-18] MEDS: Senokot S 8.6-50 MG TAB PO SCH ×2 (10:14→20:28)
[2023-06-18] MEDS: Multivitamins, Adult 10 ML, MULTITRACE-4 CONC VIAL 1 ML in D15W-AA 5% with Lytes 2,000 ML IV SCH (14:45)
[2023-06-18] MEDS: Lorazepam 2 MG/ML VIAL SLOW IVP PRN (19:45)
[2023-06-19 03:55] LABS: #Basophils 0.1 thou/uL (0.0-0.2); #Eosinphils 0.2 thou/uL (0.0-0.7); #Monocytes 0.6 thou/uL (0.11-0.59); #Neutrophils 4.4 thou/uL (1.40-6.50); %Basophils 1.1 % (0.0-1.0); %Eosinophils 3.1 % (0.0-10.0); %Lymphocytes 18.7 % (21.0-51.0); %Monocytes 8.5 % (0.0-10.0); %Neutrophils 68.3 % (42.0-75.0); Hematocrit 35.5 % (42.0-52.0); Hemoglobin 10.8 g/dL (14.0-18.0); Mean Corpuscular HGB CONC 30.4 g/dL (32.0-36.0); Platelet Count 199 10x3/uL (130-400); RBC Distribution Width 13.4 % (11.5-14.5); Red Blood Cell (RBC) Count 3.37 mill/uL (4.70-6.10); White Blood Cell (WBC) Count 6.5 10x3/uL (4.8-10.8)
[2023-06-19] MEDS: Piperacillin/Tazobactam 3.375 GM in Sodium Chloride 0.9% 100 ML IVPB SCH (04:23)
[2023-06-19] MEDS: Metoclopramide HCl 10 MG/2 ML VIAL IVP SCH (04:25)
[2023-06-19 04:28] LABS: Mean Corpuscular Volume 105.3 fl (78.0-98.0)
[2023-06-19] MEDS: Dexmedetomidine 400 MCG, Admixture Fee 1 EACH in Sodium Chloride 0.9% 96 ML IVPB SCH ×3 (04:39→21:56)
[2023-06-19] MEDS: Lorazepam 2 MG/ML VIAL SLOW IVP PRN ×3 (04:39→21:46)
[2023-06-19 05:09] LABS: INR-International Normal Ratio 1.3; PTT 34.3 sec (22.9-36.1); Prothrombin Time 16.3 sec (12.0-14.7)
[2023-06-19 05:11] LABS: Albumin 3.4 g/dL (3.5-5.0)
[2023-06-19 05:12] LABS: Chloride 105 mmol/L (98-107); Potassium 4.4 mmol/L (3.5-5.1); Sodium 140 mmol/L (136-145)
[2023-06-19 05:13] LABS: Calcium 8.8 mg/dL (7.8-10.44)
[2023-06-19 05:14] LABS: Globulin 3.2 g/dL (2.4-3.5); Glucose 103 mg/dL (70-105); Protein, Total 6.6 g/dL (6.0-8.3); Triglycerides 100 mg/dL (Less than 150)
[2023-06-19 05:15] LABS: Anion Gap 12 mmol/L (10-20); Bilirubin, Total 1.3 mg/dL (0.2-1.2); Carbon Dioxide 27 mmol/L (22-29)
[2023-06-19 05:16] LABS: Alkaline Phosphatase 118 U/L (40-110); Phosphorus 2.8 mg/dL (2.3-4.7)
[2023-06-19 05:17] LABS: Calc. Creatinine Clearance 188 mL/min (70-130); Estimated GFR 107
[2023-06-19 05:18] LABS: BUN (Urea Nitrogen) 17 mg/dL (8.4-25.7); Cholesterol 83 mg/dl (< 200 Desired)
[2023-06-19 05:19] LABS: AST (SGOT) 38 U/L (5-34); Cardiac Risk 3.8 (Less than 4.5); HDL Cholesterol 22 mg/dL (>60 Neg Risk); LDL Cholesterol, Calculated 41 mg/dL; Magnesium 2.1 mg/dL (1.6-2.6)
[2023-06-19 05:20] LABS: ALT (SGPT) 77 U/L (8-55)
[2023-06-19] MEDS: Senokot S 8.6-50 MG TAB PO SCH ×2 (08:10→20:34)
[2023-06-19] MEDS: Amlodipine 10 MG TAB PER TUBE SCH (08:10)
[2023-06-19] MEDS: Pantoprazole 40 MG VIAL IVP SCH (08:10)
[2023-06-19] MEDS: ERYTHROMYCIN IVPB SCH ×3 (13:15→23:35)
[2023-06-19] MEDS: SODIUM CHLORIDE 0.9% IVPB SCH ×3 (13:15→23:35)
[2023-06-19] MEDS: Multivitamins, Adult 10 ML, MULTITRACE-4 CONC VIAL 1 ML in D15W-AA 5% with Lytes 2,000 ML IV SCH (13:42)
[2023-06-19] MEDS: Methylnaltrexone 12 MG/0.6 ML VIAL SC SCH (15:20)
[2023-06-20 04:35] LABS: INR-International Normal Ratio 1.1; Prothrombin Time 14.4 sec (12.0-14.7)
[2023-06-20 04:41] LABS: ALT (SGPT) 64 U/L (8-55); AST (SGOT) 28 U/L (5-34); Albumin 3.3 g/dL (3.5-5.0); Alkaline Phosphatase 134 U/L (40-110); Anion Gap 8 mmol/L (10-20); BUN (Urea Nitrogen) 18 mg/dL (8.4-25.7); Calc. Creatinine Clearance 205 mL/min (70-130); Calcium 8.9 mg/dL (7.8-10.44); Carbon Dioxide 28 mmol/L (22-29); Cardiac Risk 4.1 (Less than 4.5); Chloride 103 mmol/L (98-107); Cholesterol 78 mg/dl (< 200 Desired); Estimated GFR 110; Globulin 3.3 g/dL (2.4-3.5); Glucose 99 mg/dL (70-105); HDL Cholesterol 19 mg/dL (>60 Neg Risk); LDL Cholesterol, Calculated 41 mg/dL; Magnesium 1.9 mg/dL (1.6-2.6); Potassium 4.3 mmol/L (3.5-5.1); Protein, Total 6.6 g/dL (6.0-8.3); Sodium 135 mmol/L (136-145); Triglycerides 92 mg/dL (Less than 150)
[2023-06-20 04:51] LABS: Phosphorus 3.2 mg/dL (2.3-4.7)
[2023-06-20] MEDS: Dexmedetomidine 400 MCG, Admixture Fee 1 EACH in Sodium Chloride 0.9% 96 ML IVPB SCH ×3 (05:19→22:03)
[2023-06-20] MEDS: Lorazepam 2 MG/ML VIAL SLOW IVP PRN ×2 (05:39→19:27)
[2023-06-20] MEDS: SODIUM CHLORIDE 0.9% IVPB SCH ×3 (05:40→18:33)
[2023-06-20] MEDS: ERYTHROMYCIN IVPB SCH ×3 (05:40→18:33)
[2023-06-20] MEDS ORDERED: Magnesium 2 GM/50 ML(in water) 2 GM in Premix Bag 1 BAG IVPB SCH (06:15)
[2023-06-20 06:23] LABS: #Basophils 0.1 thou/uL (0.0-0.2); #Eosinphils 0.3 thou/uL (0.0-0.7); #Monocytes 0.8 thou/uL (0.11-0.59); #Neutrophils 6.4 thou/uL (1.40-6.50); %Basophils 0.7 % (0.0-1.0); %Lymphocytes 14.7 % (21.0-51.0); %Monocytes 8.6 % (0.0-10.0); %Neutrophils 72.5 % (42.0-75.0); Hematocrit 38.1 % (42.0-52.0); Hemoglobin 12.8 g/dL (14.0-18.0); Mean Corpuscular HGB CONC 33.6 g/dL (32.0-36.0); Mean Corpuscular Hemoglobin 31.5 pg (27.0-31.0); Mean Corpuscular Volume 93.8 fl (78.0-98.0); Mean Platelet Volume 11.3 fL (7.4-10.4); Platelet Count 286 10x3/uL (130-400); Red Blood Cell (RBC) Count 4.06 mill/uL (4.70-6.10); White Blood Cell (WBC) Count 8.8 10x3/uL (4.8-10.8)
[2023-06-20] MEDS: Senokot S 8.6-50 MG TAB PO SCH ×2 (08:29→20:30)
[2023-06-20] MEDS: Pantoprazole 40 MG VIAL IVP SCH (08:29)
[2023-06-20] MEDS: Amlodipine 10 MG TAB PER TUBE SCH (08:29)
[2023-06-20] MEDS: carBAMazepine 100 MG/5 ML UDCUP PO SCH ×2 (10:22→16:34)
[2023-06-20] MEDS: fentaNYL 50 mcg/mL 1 mL Vial SLOW IVP PRN ×2 (11:19→16:32)
[2023-06-20] MEDS: Multivitamins, Adult 10 ML, MULTITRACE-4 CONC VIAL 1 ML in D15W-AA 5% with Lytes 2,000 ML IV SCH (13:58)
[2023-06-20] MEDS: Scopolamine 1.5 mg/72 hour Patch TD SCH (14:01)
[2023-06-20] MEDS: cloNIDine 0.1 MG TAB PO SCH (18:03)
[2023-06-21] MEDS: cloNIDine 0.1 MG TAB PO SCH ×4 (00:24→17:27)
[2023-06-21] MEDS: SODIUM CHLORIDE 0.9% IVPB SCH ×4 (00:40→18:15)
[2023-06-21] MEDS: ERYTHROMYCIN IVPB SCH ×4 (00:40→18:15)
[2023-06-21 04:26] LABS: #Basophils 0.1 thou/uL (0.0-0.2); #Eosinphils 0.2 thou/uL (0.0-0.7); #Monocytes 0.6 thou/uL (0.11-0.59); #Neutrophils 4.3 thou/uL (1.40-6.50); %Basophils 0.9 % (0.0-1.0); %Eosinophils 3.3 % (0.0-10.0); %Lymphocytes 21.9 % (21.0-51.0); %Neutrophils 64.4 % (42.0-75.0); Hematocrit 35.6 % (42.0-52.0); Hemoglobin 12.2 g/dL (14.0-18.0); Mean Corpuscular HGB CONC 34.3 g/dL (32.0-36.0); Mean Corpuscular Hemoglobin 32.1 pg (27.0-31.0); Mean Corpuscular Volume 93.7 fl (78.0-98.0); Platelet Count 287 10x3/uL (130-400); White Blood Cell (WBC) Count 6.7 10x3/uL (4.8-10.8)
[2023-06-21 04:37] LABS: INR-International Normal Ratio 1.1; PTT 35.7 sec (22.9-36.1); Prothrombin Time 14.6 sec (12.0-14.7)
[2023-06-21 04:51] LABS: Phosphorus 3.8 mg/dL (2.3-4.7)
[2023-06-21 04:54] LABS: ALT (SGPT) 56 U/L (8-55); AST (SGOT) 24 U/L (5-34); Albumin 3.3 g/dL (3.5-5.0); Alkaline Phosphatase 137 U/L (40-110); Anion Gap 10 mmol/L (10-20); BUN (Urea Nitrogen) 20 mg/dL (8.4-25.7); Bilirubin, Total 0.9 mg/dL (0.2-1.2); Calc. Creatinine Clearance 177 mL/min (70-130); Carbon Dioxide 28 mmol/L (22-29); Cardiac Risk 4.7 (Less than 4.5); Chloride 103 mmol/L (98-107); Cholesterol 84 mg/dl (< 200 Desired); Estimated GFR 105; Globulin 3.2 g/dL (2.4-3.5); Glucose 126 mg/dL (70-105); HDL Cholesterol 18 mg/dL (>60 Neg Risk); LDL Cholesterol, Calculated 46 mg/dL; Potassium 4.2 mmol/L (3.5-5.1); Protein, Total 6.5 g/dL (6.0-8.3); Sodium 137 mmol/L (136-145); Triglycerides 101 mg/dL (Less than 150)
[2023-06-21] MEDS: Dexmedetomidine 400 MCG, Admixture Fee 1 EACH in Sodium Chloride 0.9% 96 ML IVPB SCH (05:51)
[2023-06-21 07:53] LABS: Magnesium 1.9 mg/dL (1.6-2.6)
[2023-06-21] MEDS: Amlodipine 10 MG TAB PER TUBE SCH (08:28)
[2023-06-21] MEDS: Senokot S 8.6-50 MG TAB PO SCH ×2 (08:28→20:01)
[2023-06-21] MEDS: Pantoprazole 40 MG VIAL IVP SCH (08:28)
[2023-06-21] MEDS ORDERED: Magnesium 2 GM/50 ML(in water) 2 GM in Premix Bag 1 BAG IVPB SCH (08:30)
[2023-06-21] MEDS: carBAMazepine 100 MG/5 ML UDCUP PO SCH ×2 (08:37→16:01)
[2023-06-21] MEDS: Lorazepam 2 MG/ML VIAL SLOW IVP PRN ×2 (12:12→20:49)
[2023-06-21] MEDS: Multivitamins, Adult 10 ML, MULTITRACE-4 CONC VIAL 1 ML in D15W-AA 5% with Lytes 2,000 ML IV SCH (13:12)
[2023-06-21] MEDS: fentaNYL 50 mcg/mL 1 mL Vial SLOW IVP PRN ×2 (13:13→16:39)
[2023-06-21] MEDS: Naloxegol 12.5 MG TAB PER TUBE SCH (15:11)
[2023-06-22] MEDS: SODIUM CHLORIDE 0.9% IVPB SCH ×3 (00:10→13:33)
[2023-06-22] MEDS: ERYTHROMYCIN IVPB SCH ×3 (00:10→13:33)
[2023-06-22] MEDS: cloNIDine 0.1 MG TAB PO SCH ×3 (00:10→13:44)
[2023-06-22 05:31] LABS: #Basophils 0.1 thou/uL (0.0-0.2); #Eosinphils 0.1 thou/uL (0.0-0.7); #Monocytes 1.4 thou/uL (0.11-0.59); #Neutrophils 16.9 thou/uL (1.40-6.50); %Basophils 0.5 % (0.0-1.0); %Eosinophils 0.6 % (0.0-10.0); %Lymphocytes 5.2 % (21.0-51.0); %Monocytes 7.3 % (0.0-10.0); %Neutrophils 85.9 % (42.0-75.0); Hematocrit 39.7 % (42.0-52.0); Hemoglobin 13.5 g/dL (14.0-18.0); Mean Corpuscular Hemoglobin 31.6 pg (27.0-31.0); Mean Platelet Volume 10.7 fL (7.4-10.4); Platelet Count 368 10x3/uL (130-400); RBC Distribution Width 13.2 % (11.5-14.5); Red Blood Cell (RBC) Count 4.27 mill/uL (4.70-6.10); White Blood Cell (WBC) Count 19.6 10x3/uL (4.8-10.8)
[2023-06-22 05:44] LABS: INR-International Normal Ratio 1.1; PTT 33.7 sec (22.9-36.1); Prothrombin Time 14.6 sec (12.0-14.7)
[2023-06-22 05:56] LABS: ALT (SGPT) 58 U/L (8-55); AST (SGOT) 28 U/L (5-34); Albumin 3.6 g/dL (3.5-5.0); Alkaline Phosphatase 169 U/L (40-110); Anion Gap 10 mmol/L (10-20); BUN (Urea Nitrogen) 16 mg/dL (8.4-25.7); Bilirubin, Total 1.3 mg/dL (0.2-1.2); Calc. Creatinine Clearance 168 mL/min (70-130); Calcium 9.3 mg/dL (7.8-10.44); Carbon Dioxide 28 mmol/L (22-29); Cardiac Risk 4.4 (Less than 4.5); Chloride 103 mmol/L (98-107); Cholesterol 97 mg/dl (< 200 Desired); Estimated GFR 106; Globulin 3.7 g/dL (2.4-3.5); Glucose 152 mg/dL (70-105); HDL Cholesterol 22 mg/dL (>60 Neg Risk); LDL Cholesterol, Calculated 57 mg/dL; Potassium 4.3 mmol/L (3.5-5.1); Protein, Total 7.3 g/dL (6.0-8.3); Sodium 137 mmol/L (136-145); Triglycerides 89 mg/dL (Less than 150)
[2023-06-22 08:54] LABS: Magnesium 1.8 mg/dL (1.6-2.6)
[2023-06-22] MEDS: Amlodipine 10 MG TAB PER TUBE SCH (09:17)
[2023-06-22] MEDS: Pantoprazole 40 MG VIAL IVP SCH (09:17)
[2023-06-22] MEDS: Senokot S 8.6-50 MG TAB PO SCH (09:17)
[2023-06-22] MEDS: carBAMazepine 100 MG/5 ML UDCUP PO SCH ×2 (09:50→18:23)
[2023-06-22] MEDS ORDERED: Magnesium 2 GM/50 ML(in water) 2 GM in Premix Bag 1 BAG IVPB SCH (10:00)
[2023-06-22 10:22] LABS: Bilirubin Negative (Negative); Blood, Urine 2+ (Negative); CAUTI Indications for Culture Alt mental st,lethar; Clarity Clear (Clear); Glucose, Urine (Dipstick) Normal (Negative); Ketone, Urine Negative (Negative); Leukocyte 250 Leu/uL (Negative); Nitrite 2+ (Negative); Protein, Urine (Dipstick) 20 mg/dL (Neg-Trace); RBC/HPF 21-50 HPF (0-3); Specific Gravity, Urine 1.026 (1.002-1.036); Squamous Epithelial None Seen HPF (0-3); Urobilinogen Normal mg/dL (Less than 2); WBC/HPF 21-50 HPF (0-3); pH, Urine 5.5 (5.0-9.0)
[2023-06-22 10:47] LABS: Bacteria/HPF 1+ HPF (None Seen)
[2023-06-22 10:48] LABS: Urine Culture Reflex Yes Yes
[2023-06-22] MEDS ORDERED: Piperacillin/Tazobactam 3.375 GM in Sodium Chloride 0.9% 100 ML IVPB SCH (13:00)
[2023-06-22] MEDS: Multivitamins, Adult 10 ML, MULTITRACE-4 CONC VIAL 1 ML in D15W-AA 5% with Lytes 2,000 ML IV SCH (13:33)
[2023-06-22] MEDS: Piperacillin/Tazobactam 3.375 GM in Sodium Chloride 0.9% 100 ML IVPB SCH (17:46)
[2023-06-23] MEDS: Piperacillin/Tazobactam 3.375 GM in Sodium Chloride 0.9% 100 ML IVPB SCH ×4 (00:20→20:24)
[2023-06-23] MEDS: clonazePAM 0.5 MG TAB PO SCH ×2 (00:24→10:18)
[2023-06-23] MEDS: traMADol HCl 50 MG TAB PO SCH ×2 (00:24→05:01)
[2023-06-23] MEDS: Senokot S 8.6-50 MG TAB PO SCH ×3 (00:25→21:55)
[2023-06-23] MEDS: cloNIDine 0.1 MG TAB PO SCH ×5 (00:25→23:57)
[2023-06-23 04:55] LABS: #Basophils 0.1 thou/uL (0.0-0.2); #Neutrophils 8.7 thou/uL (1.40-6.50); %Basophils 0.5 % (0.0-1.0); %Eosinophils 0.3 % (0.0-10.0); %Lymphocytes 8.2 % (21.0-51.0); %Monocytes 8.9 % (0.0-10.0); %Neutrophils 81.6 % (42.0-75.0); Hematocrit 36.4 % (42.0-52.0); Hemoglobin 12.2 g/dL (14.0-18.0); Mean Corpuscular HGB CONC 33.5 g/dL (32.0-36.0); Mean Corpuscular Hemoglobin 31.9 pg (27.0-31.0); RBC Distribution Width 13.5 % (11.5-14.5); Red Blood Cell (RBC) Count 3.83 mill/uL (4.70-6.10); White Blood Cell (WBC) Count 10.7 10x3/uL (4.8-10.8)
[2023-06-23 04:57] LABS: Platelet Count 265 10x3/uL (130-400)
[2023-06-23] MEDS: Cyclobenzaprine 10 MG TAB PO PRN (05:01)
[2023-06-23 05:06] LABS: INR-International Normal Ratio 1.2; PTT 27.4 sec (22.9-36.1); Prothrombin Time 15.2 sec (12.0-14.7)
[2023-06-23 05:21] LABS: Magnesium 1.8 mg/dL (1.6-2.6); Phosphorus 3.2 mg/dL (2.3-4.7)
[2023-06-23 05:24] LABS: ALT (SGPT) 50 U/L (8-55); AST (SGOT) 25 U/L (5-34); Albumin 3.4 g/dL (3.5-5.0); Alkaline Phosphatase 162 U/L (40-110); Anion Gap 10 mmol/L (10-20); BUN (Urea Nitrogen) 17 mg/dL (8.4-25.7); Bilirubin, Total 1.3 mg/dL (0.2-1.2); Calc. Creatinine Clearance 164 mL/min (70-130); Calcium 8.9 mg/dL (7.8-10.44); Carbon Dioxide 26 mmol/L (22-29); Cardiac Risk 3.8 (Less than 4.5); Chloride 101 mmol/L (98-107); Cholesterol 91 mg/dl (< 200 Desired); Estimated GFR 105; Globulin 3.5 g/dL (2.4-3.5); Glucose 121 mg/dL (70-105); HDL Cholesterol 24 mg/dL (>60 Neg Risk); LDL Cholesterol, Calculated 53 mg/dL; Potassium 4.1 mmol/L (3.5-5.1); Protein, Total 6.9 g/dL (6.0-8.3); Sodium 133 mmol/L (136-145); Triglycerides 71 mg/dL (Less than 150)
[2023-06-23] MEDS ORDERED: Magnesium 2 GM/50 ML(in water) 2 GM in Premix Bag 1 BAG IVPB SCH ×2 (06:30→09:00)
[2023-06-23 08:18] LABS: Bacteria/HPF None Seen HPF (None Seen); Bilirubin Negative (Negative); Blood, Urine 3+ (Negative); CAUTI Indications for Culture Alt mental st,lethar; Clarity Clear (Clear); Glucose, Urine (Dipstick) Normal (Negative); Ketone, Urine Negative (Negative); Leukocyte 25 Leu/uL (Negative); Nitrite Negative (Negative); Protein, Urine (Dipstick) 30 mg/dL (Neg-Trace); RBC/HPF 21-50 HPF (0-3); Squamous Epithelial None Seen HPF (0-3); Urobilinogen Normal mg/dL (Less than 2); pH, Urine 5.5 (5.0-9.0)
[2023-06-23] MEDS: carBAMazepine 100 MG/5 ML UDCUP PO SCH ×3 (10:18→18:29)
[2023-06-23] MEDS: Gabapentin 300 MG CAP PO SCH ×3 (10:18→21:55)
[2023-06-23] MEDS: Pantoprazole 40 MG VIAL IVP SCH (10:19)
[2023-06-23] MEDS: Amlodipine 10 MG TAB PER TUBE SCH (10:19)
[2023-06-23] MEDS ORDERED: Furosemide 40 MG/4 ML VIAL SLOW IVP SCH (10:30)
[2023-06-23] MEDS ORDERED: Ipratropium/Albuterol 3 ML NEB NEB PRN (10:44)
[2023-06-23] MEDS ORDERED: Ipratropium/Albuterol 3 ML NEB NEB SCH (11:00)
[2023-06-23] MEDS: Acetaminophen 325 MG/10.15 ML UDCUP PO SCH ×3 (11:55→23:53)
[2023-06-23] MEDS: Naloxegol 12.5 MG TAB PER TUBE SCH (16:49)
[2023-06-23] MEDS: Scopolamine 1.5 mg/72 hour Patch TD SCH (16:50)
[2023-06-23] MEDS ORDERED: clonazePAM 0.5 MG TAB PO SCH (21:00)
[2023-06-23] MEDS ORDERED: Lorazepam 2 MG/ML VIAL SLOW IVP SCH (22:15)
[2023-06-24] MEDS: Piperacillin/Tazobactam 3.375 GM in Sodium Chloride 0.9% 100 ML IVPB SCH ×3 (03:54→19:49)
[2023-06-24] MEDS: cloNIDine 0.1 MG TAB PO SCH ×4 (06:33→23:13)
[2023-06-24] MEDS: Acetaminophen 325 MG/10.15 ML UDCUP PO SCH ×4 (06:36→23:14)
[2023-06-24 09:55] LABS: #Basophils 0.1 thou/uL (0.0-0.2); #Eosinphils 0.1 thou/uL (0.0-0.7); #Monocytes 1.6 thou/uL (0.11-0.59); #Neutrophils 8.7 thou/uL (1.40-6.50); %Basophils 0.4 % (0.0-1.0); %Eosinophils 1.1 % (0.0-10.0); %Lymphocytes 8.9 % (21.0-51.0); %Monocytes 13.8 % (0.0-10.0); %Neutrophils 75.5 % (42.0-75.0); Hematocrit 38.6 % (42.0-52.0); Hemoglobin 12.9 g/dL (14.0-18.0); Mean Corpuscular HGB CONC 33.4 g/dL (32.0-36.0); Mean Corpuscular Hemoglobin 31.5 pg (27.0-31.0); Mean Corpuscular Volume 94.4 fl (78.0-98.0); Mean Platelet Volume 10.3 fL (7.4-10.4); Platelet Count 238 10x3/uL (130-400); RBC Distribution Width 13.2 % (11.5-14.5); Red Blood Cell (RBC) Count 4.09 mill/uL (4.70-6.10); White Blood Cell (WBC) Count 11.5 10x3/uL (4.8-10.8)
[2023-06-24] MEDS: Gabapentin 300 MG CAP PO SCH ×3 (10:02→19:50)
[2023-06-24] MEDS: Senokot S 8.6-50 MG TAB PO SCH ×2 (10:03→19:50)
[2023-06-24] MEDS: Amlodipine 10 MG TAB PER TUBE SCH (10:03)
[2023-06-24] MEDS: carBAMazepine 100 MG/5 ML UDCUP PO SCH ×3 (10:05→16:55)
[2023-06-24] MEDS: Pantoprazole 40 MG VIAL IVP SCH (10:08)
[2023-06-24] MEDS ORDERED: Lorazepam 2 MG/ML VIAL ONE (14:04)
[2023-06-24] MEDS ORDERED: Lorazepam 2 MG/ML VIAL SLOW IVP SCH (14:30)
[2023-06-24] MEDS: clonazePAM 0.5 MG TAB PO SCH (19:49)
[2023-06-24] MEDS: Melatonin 3 MG TAB PO SCH (19:50)
[2023-06-24] MEDS: traMADol HCl 50 MG TAB PO PRN (20:04)
[2023-06-25] MEDS ORDERED: Lorazepam 2 MG/ML VIAL SLOW IVP SCH (02:00)
[2023-06-25] MEDS: Piperacillin/Tazobactam 3.375 GM in Sodium Chloride 0.9% 100 ML IVPB SCH (04:00)
[2023-06-25 04:54] LABS: Anion Gap 12 mmol/L (10-20); BUN (Urea Nitrogen) 17 mg/dL (8.4-25.7); Calc. Creatinine Clearance 165 mL/min (70-130); Calcium 9.3 mg/dL (7.8-10.44); Carbon Dioxide 29 mmol/L (22-29); Chloride 98 mmol/L (98-107); Estimated GFR 104; Glucose 108 mg/dL (70-105); Magnesium 1.7 mg/dL (1.6-2.6); Phosphorus 3.4 mg/dL (2.3-4.7); Potassium 4.1 mmol/L (3.5-5.1); Sodium 135 mmol/L (136-145)
[2023-06-25] MEDS: cloNIDine 0.1 MG TAB PO SCH ×4 (05:09→22:44)
[2023-06-25] MEDS: Acetaminophen 325 MG/10.15 ML UDCUP PO SCH ×4 (05:09→22:43)
[2023-06-25] MEDS ORDERED: Magnesium 2 GM/50 ML(in water) 2 GM in Premix Bag 1 BAG IVPB SCH (08:00)
[2023-06-25] MEDS: carBAMazepine 100 MG/5 ML UDCUP PO SCH ×3 (11:01→17:15)
[2023-06-25] MEDS: Gabapentin 300 MG CAP PO SCH ×3 (11:02→21:19)
[2023-06-25] MEDS: clonazePAM 0.5 MG TAB PO SCH ×2 (11:02→21:19)
[2023-06-25] MEDS: Pantoprazole 40 MG VIAL IVP SCH (11:02)
[2023-06-25] MEDS: Saccharomyces boulardii 250 MG CAP PO SCH (11:03)
[2023-06-25] MEDS: Senokot S 8.6-50 MG TAB PO SCH (11:05)
[2023-06-25] MEDS: Amlodipine 10 MG TAB PER TUBE SCH (11:07)
[2023-06-25] MEDS: Cefepime 2 GM in Sodium Chloride 0.9% 100 ML IVPB SCH ×2 (11:43→21:18)
[2023-06-25] MEDS: Naloxegol 12.5 MG TAB PER TUBE SCH (15:27)
[2023-06-25] MEDS: Ipratropium/Albuterol 3 ML NEB NEB SCH (19:25)
[2023-06-25] MEDS: Melatonin 3 MG TAB PO SCH (21:19)
[2023-06-25] MEDS: traMADol HCl 50 MG TAB PO PRN (22:46)
[2023-06-26] MEDS: traMADol HCl 50 MG TAB PO PRN (05:08)
[2023-06-26] MEDS: Cefepime 2 GM in Sodium Chloride 0.9% 100 ML IVPB SCH ×3 (05:10→21:11)
[2023-06-26] MEDS: Acetaminophen 325 MG/10.15 ML UDCUP PO SCH ×4 (05:11→23:26)
[2023-06-26] MEDS: cloNIDine 0.1 MG TAB PO SCH ×4 (05:11→23:29)
[2023-06-26] MEDS: Ipratropium/Albuterol 3 ML NEB NEB SCH ×3 (06:44→18:51)
[2023-06-26 07:48] LABS: #Eosinphils 0.1 thou/uL (0.0-0.7); #Monocytes 0.7 thou/uL (0.11-0.59); #Neutrophils 2.7 thou/uL (1.40-6.50); %Basophils 0.5 % (0.0-1.0); %Eosinophils 1.6 % (0.0-10.0); %Lymphocytes 18.2 % (21.0-51.0); %Monocytes 16.4 % (0.0-10.0); %Neutrophils 63.1 % (42.0-75.0); Hematocrit 33.8 % (42.0-52.0); Hemoglobin 11.5 g/dL (14.0-18.0); Mean Corpuscular Hemoglobin 31.7 pg (27.0-31.0); Mean Corpuscular Volume 93.1 fl (78.0-98.0); Mean Platelet Volume 10.6 fL (7.4-10.4); Platelet Count 184 10x3/uL (130-400); RBC Distribution Width 13.1 % (11.5-14.5); Red Blood Cell (RBC) Count 3.63 mill/uL (4.70-6.10); White Blood Cell (WBC) Count 4.3 10x3/uL (4.8-10.8)
[2023-06-26] MEDS: Saccharomyces boulardii 250 MG CAP PO SCH (08:57)
[2023-06-26] MEDS: Amlodipine 10 MG TAB PER TUBE SCH (08:57)
[2023-06-26] MEDS: Pantoprazole 40 MG VIAL IVP SCH (08:57)
[2023-06-26] MEDS: clonazePAM 0.5 MG TAB PO SCH ×2 (08:57→21:10)
[2023-06-26] MEDS: Polyethylene Glycol 3350 17 GM Packet PER TUBE SCH (08:57)
[2023-06-26] MEDS: Gabapentin 300 MG CAP PO SCH ×3 (08:58→21:10)
[2023-06-26] MEDS: carBAMazepine 100 MG/5 ML UDCUP PO SCH ×3 (09:01→19:17)
[2023-06-26 09:15] VITALS: BMI 33.7
[2023-06-26] MEDS: Scopolamine 1.5 mg/72 hour Patch TD SCH (15:24)
[2023-06-26] MEDS: Melatonin 3 MG TAB PO SCH (21:10)
[2023-06-26] MEDS: Cyclobenzaprine 10 MG TAB PO PRN (21:10)
[2023-06-27] MEDS: Cefepime 2 GM in Sodium Chloride 0.9% 100 ML IVPB SCH ×3 (05:32→20:48)
[2023-06-27] MEDS: Acetaminophen 325 MG/10.15 ML UDCUP PO SCH ×3 (05:33→18:28)
[2023-06-27] MEDS: cloNIDine 0.1 MG TAB PO SCH ×3 (05:36→18:29)
[2023-06-27] MEDS: Ipratropium/Albuterol 3 ML NEB NEB SCH ×2 (06:02→19:39)
[2023-06-27] MEDS: Pantoprazole 40 MG VIAL IVP SCH (09:14)
[2023-06-27] MEDS: Saccharomyces boulardii 250 MG CAP PO SCH (09:14)
[2023-06-27] MEDS: clonazePAM 0.5 MG TAB PO SCH ×2 (09:14→20:43)
[2023-06-27] MEDS: carBAMazepine 100 MG/5 ML UDCUP PO SCH ×3 (09:15→18:28)
[2023-06-27] MEDS: Gabapentin 300 MG CAP PO SCH ×3 (09:15→20:51)
[2023-06-27] MEDS: Polyethylene Glycol 3350 17 GM Packet PER TUBE SCH (09:15)
[2023-06-27] MEDS: Amlodipine 10 MG TAB PER TUBE SCH (09:17)
[2023-06-27 12:18] LABS: Hematocrit 37.3 % (42.0-52.0); Hemoglobin 12.2 g/dL (14.0-18.0); Mean Corpuscular HGB CONC 32.7 g/dL (32.0-36.0); Mean Corpuscular Volume 94.9 fl (78.0-98.0); Mean Platelet Volume 10.4 fL (7.4-10.4); Platelet Count 218 10x3/uL (130-400); RBC Distribution Width 12.9 % (11.5-14.5); Red Blood Cell (RBC) Count 3.93 mill/uL (4.70-6.10); White Blood Cell (WBC) Count 3.8 10x3/uL (4.8-10.8)
[2023-06-27 12:21] LABS: Delete Auto Diff?? YES; Manual Diff?? YES
[2023-06-27 12:43] LABS: ALT (SGPT) 87 U/L (8-55); AST (SGOT) 59 U/L (5-34); Albumin 3.3 g/dL (3.5-5.0); Alkaline Phosphatase 133 U/L (40-110); Anion Gap 10 mmol/L (10-20); BUN (Urea Nitrogen) 10 mg/dL (8.4-25.7); Bilirubin, Total 0.8 mg/dL (0.2-1.2); Calc. Creatinine Clearance 160 mL/min (70-130); Calcium 9.1 mg/dL (7.8-10.44); Carbon Dioxide 29 mmol/L (22-29); Chloride 103 mmol/L (98-107); Estimated GFR 104; Globulin 3.8 g/dL (2.4-3.5); Glucose 123 mg/dL (70-105); Potassium 3.8 mmol/L (3.5-5.1); Protein, Total 7.1 g/dL (6.0-8.3); Sodium 138 mmol/L (136-145)
[2023-06-27 12:44] LABS: Band 10 % (5-11); CellaVision Operator ID LAB.MJL; Large Platelets 4.3 % (0-5); Lymphocytes 26 % (21-51); Monocytes 8 % (0-10); Neutrophil 53 % (42-75); Platelet Adequacy Comment Platelets Normal; Polychromasia SLIGHT = 2-3 cells HPF (0-2); Reactive Lymphocytes 3 % (0-10); Total Cell Count 116
[2023-06-27] MEDS: Naloxegol 12.5 MG TAB PER TUBE SCH (16:33)
[2023-06-27] MEDS: Melatonin 3 MG TAB PO SCH (20:43)
[2023-06-27] MEDS: Cyclobenzaprine 10 MG TAB PO PRN (20:44)
[2023-06-28] MEDS: Acetaminophen 325 MG/10.15 ML UDCUP PO SCH ×3 (00:43→11:55)
[2023-06-28] MEDS: cloNIDine 0.1 MG TAB PO SCH ×5 (00:46→23:49)
[2023-06-28] MEDS: Cefepime 2 GM in Sodium Chloride 0.9% 100 ML IVPB SCH ×3 (04:19→20:22)
[2023-06-28 06:45] LABS: Hematocrit 32.9 % (42.0-52.0); Hemoglobin 10.9 g/dL (14.0-18.0); Mean Corpuscular HGB CONC 33.1 g/dL (32.0-36.0); Mean Corpuscular Hemoglobin 31.4 pg (27.0-31.0); Mean Corpuscular Volume 94.8 fl (78.0-98.0); Mean Platelet Volume 10.4 fL (7.4-10.4); Platelet Count 168 10x3/uL (130-400); Red Blood Cell (RBC) Count 3.47 mill/uL (4.70-6.10); White Blood Cell (WBC) Count 3.2 10x3/uL (4.8-10.8)
[2023-06-28 06:51] LABS: Delete Auto Diff?? YES; Manual Diff?? YES
[2023-06-28 07:09] LABS: ALT (SGPT) 89 U/L (8-55); AST (SGOT) 60 U/L (5-34); Albumin 3.1 g/dL (3.5-5.0); Alkaline Phosphatase 120 U/L (40-110); Anion Gap 13 mmol/L (10-20); BUN (Urea Nitrogen) 10 mg/dL (8.4-25.7); Bilirubin, Total 0.6 mg/dL (0.2-1.2); Calc. Creatinine Clearance 178 mL/min (70-130); Calcium 8.8 mg/dL (7.8-10.44); Carbon Dioxide 28 mmol/L (22-29); Chloride 104 mmol/L (98-107); Estimated GFR 107; Globulin 3.3 g/dL (2.4-3.5); Glucose 89 mg/dL (70-105); Potassium 3.5 mmol/L (3.5-5.1); Protein, Total 6.4 g/dL (6.0-8.3); Sodium 141 mmol/L (136-145)
[2023-06-28] MEDS: Ipratropium/Albuterol 3 ML NEB NEB SCH ×2 (07:12→19:11)
[2023-06-28 07:17] LABS: Band 8 % (5-11); CellaVision Operator ID lab.dlt; Eosinophils 3 % (0-10); Large Platelets 5.9 % (0-5); Lymphocytes 34 % (21-51); Monocytes 5 % (0-10); Neutrophil 49 % (42-75); Platelet Adequacy Comment Platelets Normal; Polychromasia SLIGHT = 2-3 cells HPF (0-2); Reactive Lymphocytes 1 % (0-10); Total Cell Count 101
[2023-06-28] MEDS: clonazePAM 0.5 MG TAB PO SCH ×2 (09:32→20:24)
[2023-06-28] MEDS: Amlodipine 10 MG TAB PER TUBE SCH (09:32)
[2023-06-28] MEDS: Saccharomyces boulardii 250 MG CAP PO SCH (09:32)
[2023-06-28] MEDS: Gabapentin 300 MG CAP PO SCH ×3 (09:32→20:24)
[2023-06-28] MEDS: Pantoprazole 40 MG VIAL IVP SCH (09:33)
[2023-06-28] MEDS: Polyethylene Glycol 3350 17 GM Packet PER TUBE SCH (09:33)
[2023-06-28] MEDS: carBAMazepine 100 MG/5 ML UDCUP PO SCH (10:52)
[2023-06-28] MEDS: RisperDAL M 1 MG TAB PO SCH ×2 (11:56→20:26)
[2023-06-28] MEDS ORDERED: Acetaminophen 325 MG TAB PO PRN (12:44)
[2023-06-28] MEDS ORDERED: Potassium Chloride 20 MEQ TAB PO SCH (12:45)
[2023-06-28] MEDS: Melatonin 3 MG TAB PO SCH (20:24)
[2023-06-29] MEDS: Cefepime 2 GM in Sodium Chloride 0.9% 100 ML IVPB SCH (04:23)
[2023-06-29 04:46] LABS: #Eosinphils 0.1 thou/uL (0.0-0.7); #Monocytes 0.4 thou/uL (0.11-0.59); #Neutrophils 2.4 thou/uL (1.40-6.50); %Basophils 0.9 % (0.0-1.0); %Eosinophils 2.9 % (0.0-10.0); %Lymphocytes 35.7 % (21.0-51.0); %Monocytes 7.8 % (0.0-10.0); %Neutrophils 52.5 % (42.0-75.0); Hematocrit 34.7 % (42.0-52.0); Hemoglobin 11.5 g/dL (14.0-18.0); Mean Corpuscular HGB CONC 33.1 g/dL (32.0-36.0); Mean Corpuscular Hemoglobin 31.3 pg (27.0-31.0); Mean Corpuscular Volume 94.6 fl (78.0-98.0); Mean Platelet Volume 10.4 fL (7.4-10.4); Platelet Count 157 10x3/uL (130-400); Red Blood Cell (RBC) Count 3.67 mill/uL (4.70-6.10); White Blood Cell (WBC) Count 4.5 10x3/uL (4.8-10.8)
[2023-06-29 05:11] LABS: ALT (SGPT) 122 U/L (8-55); AST (SGOT) 75 U/L (5-34); Albumin 3.2 g/dL (3.5-5.0); Alkaline Phosphatase 125 U/L (40-110); Anion Gap 12 mmol/L (10-20); BUN (Urea Nitrogen) 10 mg/dL (8.4-25.7); Bilirubin, Total 0.5 mg/dL (0.2-1.2); Calc. Creatinine Clearance 192 mL/min (70-130); Calcium 8.8 mg/dL (7.8-10.44); Carbon Dioxide 27 mmol/L (22-29); Chloride 107 mmol/L (98-107); Estimated GFR 109; Globulin 3.4 g/dL (2.4-3.5); Glucose 87 mg/dL (70-105); Potassium 3.9 mmol/L (3.5-5.1); Protein, Total 6.6 g/dL (6.0-8.3); Sodium 142 mmol/L (136-145)
[2023-06-29] MEDS: cloNIDine 0.1 MG TAB PO SCH ×3 (05:45→17:46)
[2023-06-29] MEDS: Ipratropium/Albuterol 3 ML NEB NEB SCH ×2 (07:41→18:48)
[2023-06-29] MEDS: Amlodipine 10 MG TAB PER TUBE SCH (09:34)
[2023-06-29] MEDS: clonazePAM 0.5 MG TAB PO SCH ×2 (09:35→20:17)
[2023-06-29] MEDS: Gabapentin 300 MG CAP PO SCH ×3 (09:35→20:16)
[2023-06-29] MEDS: Pantoprazole 40 MG VIAL IVP SCH (09:35)
[2023-06-29] MEDS: Saccharomyces boulardii 250 MG CAP PO SCH (09:35)
[2023-06-29] MEDS: RisperDAL M 1 MG TAB PO SCH ×2 (09:36→21:05)
[2023-06-29] MEDS: Polyethylene Glycol 3350 17 GM Packet PER TUBE SCH (09:42)
[2023-06-29] MEDS ORDERED: Budesonide 0.5 MG/2 ML NEB ONE (20:08)
[2023-06-29] MEDS: Melatonin 3 MG TAB PO SCH (20:17)
[2023-06-30] MEDS: cloNIDine 0.1 MG TAB PO SCH ×5 (00:31→23:07)
[2023-06-30 05:16] LABS: ALT (SGPT) 127 U/L (8-55); AST (SGOT) 65 U/L (5-34); Albumin 3.2 g/dL (3.5-5.0); Alkaline Phosphatase 129 U/L (40-110); Anion Gap 10 mmol/L (10-20); BUN (Urea Nitrogen) 10 mg/dL (8.4-25.7); Bilirubin, Total 0.6 mg/dL (0.2-1.2); Calc. Creatinine Clearance 176 mL/min (70-130); Calcium 9.3 mg/dL (7.8-10.44); Carbon Dioxide 28 mmol/L (22-29); Chloride 107 mmol/L (98-107); Estimated GFR 107; Globulin 3.5 g/dL (2.4-3.5); Glucose 94 mg/dL (70-105); Potassium 3.8 mmol/L (3.5-5.1); Protein, Total 6.7 g/dL (6.0-8.3); Sodium 141 mmol/L (136-145)
[2023-06-30] MEDS: Ipratropium/Albuterol 3 ML NEB NEB SCH ×2 (07:03→19:13)
[2023-06-30] MEDS: Amlodipine 10 MG TAB PER TUBE SCH (09:31)
[2023-06-30] MEDS: Pantoprazole 40 MG VIAL IVP SCH (09:31)
[2023-06-30] MEDS: Gabapentin 300 MG CAP PO SCH ×3 (09:31→20:06)
[2023-06-30] MEDS: clonazePAM 0.5 MG TAB PO SCH ×2 (09:32→20:06)
[2023-06-30] MEDS: Saccharomyces boulardii 250 MG CAP PO SCH (09:32)
[2023-06-30] MEDS: Polyethylene Glycol 3350 17 GM Packet PER TUBE SCH (09:32)
[2023-06-30] MEDS: RisperDAL M 1 MG TAB PO SCH ×2 (09:41→20:07)
[2023-06-30] MEDS: Cyclobenzaprine 10 MG TAB PO PRN (13:28)
[2023-06-30] MEDS: Melatonin 3 MG TAB PO SCH (20:06)
[2023-07-01] MEDS: cloNIDine 0.1 MG TAB PO SCH ×4 (05:20→23:55)
[2023-07-01] MEDS: Ipratropium/Albuterol 3 ML NEB NEB SCH ×2 (07:10→18:56)
[2023-07-01] MEDS: Pantoprazole 40 MG VIAL IVP SCH (09:26)
[2023-07-01] MEDS: Gabapentin 300 MG CAP PO SCH ×2 (09:27→15:33)
[2023-07-01] MEDS: clonazePAM 0.5 MG TAB PO SCH ×2 (09:27→21:32)
[2023-07-01] MEDS: Polyethylene Glycol 3350 17 GM Packet PER TUBE SCH (09:27)
[2023-07-01] MEDS: Saccharomyces boulardii 250 MG CAP PO SCH (09:27)
[2023-07-01] MEDS: Amlodipine 10 MG TAB PER TUBE SCH (09:27)
[2023-07-01] MEDS: RisperDAL M 1 MG TAB PO SCH (09:38)
[2023-07-01 11:21] LABS: #Eosinphils 0.1 thou/uL (0.0-0.7); #Monocytes 0.3 thou/uL (0.11-0.59); #Neutrophils 3.3 thou/uL (1.40-6.50); %Basophils 0.4 % (0.0-1.0); %Eosinophils 1.9 % (0.0-10.0); %Lymphocytes 27.1 % (21.0-51.0); Hematocrit 38.9 % (42.0-52.0); Hemoglobin 12.7 g/dL (14.0-18.0); Mean Corpuscular HGB CONC 32.6 g/dL (32.0-36.0); Mean Corpuscular Hemoglobin 31.1 pg (27.0-31.0); Mean Corpuscular Volume 95.1 fl (78.0-98.0); Mean Platelet Volume 10.2 fL (7.4-10.4); Platelet Count 225 10x3/uL (130-400); RBC Distribution Width 13.2 % (11.5-14.5); Red Blood Cell (RBC) Count 4.09 mill/uL (4.70-6.10); White Blood Cell (WBC) Count 5.2 10x3/uL (4.8-10.8)
[2023-07-01 15:19] LABS: ALT (SGPT) 109 U/L (8-55); AST (SGOT) 48 U/L (5-34); Albumin 3.6 g/dL (3.5-5.0); Alkaline Phosphatase 136 U/L (40-110); Anion Gap 16 mmol/L (10-20); BUN (Urea Nitrogen) 12 mg/dL (8.4-25.7); Bilirubin, Total 0.6 mg/dL (0.2-1.2); Calc. Creatinine Clearance 158 mL/min (70-130); Calcium 9.4 mg/dL (7.8-10.44); Carbon Dioxide 24 mmol/L (22-29); Chloride 105 mmol/L (98-107); Estimated GFR 103; Globulin 3.4 g/dL (2.4-3.5); Glucose 111 mg/dL (70-105); Magnesium 1.9 mg/dL (1.6-2.6); Phosphorus 3.7 mg/dL (2.3-4.7); Potassium 4.1 mmol/L (3.5-5.1); Sodium 141 mmol/L (136-145)
[2023-07-01] MEDS ORDERED: clonazePAM 0.5 MG TAB PO PRN (18:31)
[2023-07-01] MEDS ORDERED: risperiDONE 3 MG TAB PO SCH (21:00)
[2023-07-01] MEDS: Melatonin 3 MG TAB PO SCH (21:32)
[2023-07-01] MEDS ORDERED: Magnesium 2 GM/50 ML(in water) 2 GM in Premix Bag 1 BAG IVPB SCH (23:00)
[2023-07-02] MEDS: cloNIDine 0.1 MG TAB PO SCH ×5 (05:45→21:13)
[2023-07-02 08:05] LABS: #Eosinphils 0.1 thou/uL (0.0-0.7); #Monocytes 0.5 thou/uL (0.11-0.59); #Neutrophils 2.8 thou/uL (1.40-6.50); %Basophils 0.6 % (0.0-1.0); %Eosinophils 2.4 % (0.0-10.0); %Lymphocytes 30.2 % (21.0-51.0); %Monocytes 9.8 % (0.0-10.0); %Neutrophils 56.6 % (42.0-75.0); Hematocrit 40.2 % (42.0-52.0); Hemoglobin 13.1 g/dL (14.0-18.0); Mean Corpuscular HGB CONC 32.6 g/dL (32.0-36.0); Mean Corpuscular Hemoglobin 31.3 pg (27.0-31.0); Mean Corpuscular Volume 95.9 fl (78.0-98.0); Mean Platelet Volume 10.2 fL (7.4-10.4); Platelet Count 208 10x3/uL (130-400); RBC Distribution Width 13.5 % (11.5-14.5); Red Blood Cell (RBC) Count 4.19 mill/uL (4.70-6.10)
[2023-07-02 08:34] LABS: ALT (SGPT) 102 U/L (8-55); AST (SGOT) 45 U/L (5-34); Albumin 3.7 g/dL (3.5-5.0); Alkaline Phosphatase 143 U/L (40-110); Anion Gap 15 mmol/L (10-20); BUN (Urea Nitrogen) 14 mg/dL (8.4-25.7); Bilirubin, Total 0.8 mg/dL (0.2-1.2); Calc. Creatinine Clearance 169 mL/min (70-130); Calcium 9.8 mg/dL (7.8-10.44); Carbon Dioxide 24 mmol/L (22-29); Chloride 106 mmol/L (98-107); Estimated GFR 105; Globulin 3.7 g/dL (2.4-3.5); Glucose 92 mg/dL (70-105); Magnesium 2.1 mg/dL (1.6-2.6); Potassium 4.3 mmol/L (3.5-5.1); Protein, Total 7.4 g/dL (6.0-8.3); Sodium 141 mmol/L (136-145)
[2023-07-02] MEDS: Ipratropium/Albuterol 3 ML NEB NEB SCH ×2 (10:37→18:39)
[2023-07-02] MEDS: Meloxicam 15 MG TAB PO SCH (11:05)
[2023-07-02] MEDS: RisperDAL M 1 MG TAB PO SCH ×2 (11:05→21:13)
[2023-07-02] MEDS: Saccharomyces boulardii 250 MG CAP PO SCH (11:06)
[2023-07-02] MEDS: Pantoprazole 40 MG VIAL IVP SCH (11:06)
[2023-07-02] MEDS: Amlodipine 10 MG TAB PER TUBE SCH (11:06)
[2023-07-02] MEDS: Polyethylene Glycol 3350 17 GM Packet PER TUBE SCH (11:07)
[2023-07-02] MEDS: Melatonin 3 MG TAB PO SCH (21:12)
[2023-07-02] MEDS: Senokot S 8.6-50 MG TAB PO SCH (21:13)
[2023-07-03] MEDS: Ipratropium/Albuterol 3 ML NEB NEB SCH ×2 (07:28→18:54)
[2023-07-03 07:46] LABS: #Eosinphils 0.2 thou/uL (0.0-0.7); #Monocytes 0.4 thou/uL (0.11-0.59); #Neutrophils 2.4 thou/uL (1.40-6.50); %Basophils 0.7 % (0.0-1.0); %Eosinophils 3.6 % (0.0-10.0); %Lymphocytes 33.3 % (21.0-51.0); %Monocytes 9.2 % (0.0-10.0); %Neutrophils 52.8 % (42.0-75.0); Hematocrit 43.9 % (42.0-52.0); Hemoglobin 14.4 g/dL (14.0-18.0); Mean Corpuscular HGB CONC 32.8 g/dL (32.0-36.0); Mean Corpuscular Hemoglobin 31.4 pg (27.0-31.0); Mean Corpuscular Volume 95.9 fl (78.0-98.0); Mean Platelet Volume 9.9 fL (7.4-10.4); Platelet Count 213 10x3/uL (130-400); RBC Distribution Width 13.5 % (11.5-14.5); Red Blood Cell (RBC) Count 4.58 mill/uL (4.70-6.10); White Blood Cell (WBC) Count 4.5 10x3/uL (4.8-10.8)
[2023-07-03 08:11] LABS: ALT (SGPT) 98 U/L (8-55); AST (SGOT) 46 U/L (5-34); Albumin 3.8 g/dL (3.5-5.0); Alkaline Phosphatase 145 U/L (40-110); Anion Gap 17 mmol/L (10-20); BUN (Urea Nitrogen) 13 mg/dL (8.4-25.7); Bilirubin, Total 0.8 mg/dL (0.2-1.2); Calc. Creatinine Clearance 156 mL/min (70-130); Calcium 9.8 mg/dL (7.8-10.44); Carbon Dioxide 21 mmol/L (22-29); Chloride 106 mmol/L (98-107); Estimated GFR 103; Globulin 3.7 g/dL (2.4-3.5); Glucose 91 mg/dL (70-105); Potassium 4.2 mmol/L (3.5-5.1); Protein, Total 7.5 g/dL (6.0-8.3); Sodium 140 mmol/L (136-145)
[2023-07-03] MEDS: RisperDAL M 1 MG TAB PO SCH ×2 (09:51→20:37)
[2023-07-03] MEDS: Polyethylene Glycol 3350 17 GM Packet PER TUBE SCH (09:51)
[2023-07-03] MEDS: Meloxicam 15 MG TAB PO SCH (09:51)
[2023-07-03] MEDS: Senokot S 8.6-50 MG TAB PO SCH ×2 (09:52→20:36)
[2023-07-03] MEDS: Amlodipine 10 MG TAB PER TUBE SCH (09:52)
[2023-07-03] MEDS: cloNIDine 0.1 MG TAB PO SCH ×2 (09:52→20:36)
[2023-07-03] MEDS: Saccharomyces boulardii 250 MG CAP PO SCH (09:52)
[2023-07-03] MEDS: Melatonin 3 MG TAB PO SCH (20:36)
[2023-07-04 05:50] LABS: #Eosinphils 0.1 thou/uL (0.0-0.7); #Monocytes 0.4 thou/uL (0.11-0.59); #Neutrophils 2.1 thou/uL (1.40-6.50); %Basophils 0.7 % (0.0-1.0); %Lymphocytes 35.1 % (21.0-51.0); %Monocytes 9.4 % (0.0-10.0); %Neutrophils 51.3 % (42.0-75.0); Hematocrit 40.9 % (42.0-52.0); Hemoglobin 13.5 g/dL (14.0-18.0); Mean Corpuscular Volume 93.8 fl (78.0-98.0); Mean Platelet Volume 10.3 fL (7.4-10.4); Platelet Count 209 10x3/uL (130-400); RBC Distribution Width 13.4 % (11.5-14.5); Red Blood Cell (RBC) Count 4.36 mill/uL (4.70-6.10); White Blood Cell (WBC) Count 4.1 10x3/uL (4.8-10.8)
[2023-07-04 06:52] LABS: ALT (SGPT) 93 U/L (8-55); AST (SGOT) 39 U/L (5-34); Albumin 3.6 g/dL (3.5-5.0); Alkaline Phosphatase 138 U/L (40-110); Anion Gap 15 mmol/L (10-20); BUN (Urea Nitrogen) 12 mg/dL (8.4-25.7); Calc. Creatinine Clearance 158 mL/min (70-130); Calcium 9.9 mg/dL (7.8-10.44); Carbon Dioxide 25 mmol/L (22-29); Chloride 105 mmol/L (98-107); Estimated GFR 103; Globulin 3.6 g/dL (2.4-3.5); Glucose 95 mg/dL (70-105); Potassium 3.8 mmol/L (3.5-5.1); Protein, Total 7.2 g/dL (6.0-8.3); Sodium 141 mmol/L (136-145)
[2023-07-04] MEDS: Ipratropium/Albuterol 3 ML NEB NEB SCH ×2 (06:56→18:33)
[2023-07-04] MEDS: Polyethylene Glycol 3350 17 GM Packet PER TUBE SCH (08:33)
[2023-07-04] MEDS: Amlodipine 10 MG TAB PER TUBE SCH (08:33)
[2023-07-04] MEDS: cloNIDine 0.1 MG TAB PO SCH ×2 (08:33→21:12)
[2023-07-04] MEDS: RisperDAL M 1 MG TAB PO SCH ×2 (08:33→21:12)
[2023-07-04] MEDS: CeleCOXIB 100 MG CAP PO SCH (08:33)
[2023-07-04] MEDS: Saccharomyces boulardii 250 MG CAP PO SCH (08:33)
[2023-07-04] MEDS: Senokot S 8.6-50 MG TAB PO SCH ×2 (08:33→21:12)
[2023-07-04] MEDS: Melatonin 3 MG TAB PO SCH (21:12)
[2023-07-05] MEDS ORDERED: Lorazepam 2 MG/ML VIAL SLOW IVP SCH (00:15)
[2023-07-05] MEDS: Ipratropium/Albuterol 3 ML NEB NEB SCH (08:06)
[2023-07-05] MEDS: RisperDAL M 1 MG TAB PO SCH (09:22)
[2023-07-05] MEDS: CeleCOXIB 100 MG CAP PO SCH (09:22)
[2023-07-05] MEDS: Senokot S 8.6-50 MG TAB PO SCH (09:22)
[2023-07-05] MEDS: Polyethylene Glycol 3350 17 GM Packet PER TUBE SCH (09:22)
[2023-07-05] MEDS: Amlodipine 10 MG TAB PER TUBE SCH (09:22)
[2023-07-05] MEDS: Saccharomyces boulardii 250 MG CAP PO SCH (09:22)
[2023-07-05 13:35] VITALS: BP 130/96; TEMP 97.7
[2023-07-05] MEDS ORDERED: RisperDAL M 1 MG TAB PO SCH (21:00)
== END 2023-07-05 15:50 | disposition home or self-care (01) | DRG 4 ==
LOC: EDBD 01:13 → ERS 01:13 → EEVIPCON 02:30 → CCU 02:30 → IMCU/EMU 06-21 18:05 → SURG A 06-22 16:33
PROVIDERS: ADMIT Surgery; ATTEND Surgery
PROC: 0W9B30Z Drainage of Left Pleural Cavity with Drainage Device, Percutaneous Approach (ICD-10-PCS; principal; 2023-06-02)
PROC: 0HQ1XZZ Repair Face Skin, External Approach (ICD-10-PCS; 2023-06-02)
PROC: 5A1955Z Respiratory Ventilation, Greater than 96 Consecutive Hours (ICD-10-PCS; 2023-06-02)
PROC: 4A033R1 Measurement of Arterial Saturation, Peripheral, Percutaneous Approach (ICD-10-PCS; 2023-06-02)
PROC: 30233K1 Transfusion of Nonautologous Frozen Plasma into Peripheral Vein, Percutaneous Approach (ICD-10-PCS; 2023-06-02)
PROC: 30233N1 Transfusion of Nonautologous Red Blood Cells into Peripheral Vein, Percutaneous Approach (ICD-10-PCS; 2023-06-02)
PROC: 5A09357 Assistance with Respiratory Ventilation, Less than 24 Consecutive Hours, Continuous Positive Airway Pressure (ICD-10-PCS; 2023-06-03)
PROC: 30233J1 Transfusion of Nonautologous Serum Albumin into Peripheral Vein, Percutaneous Approach (ICD-10-PCS; 2023-06-03)
PROC: 0B113F4 Bypass Trachea to Cutaneous with Tracheostomy Device, Percutaneous Approach (ICD-10-PCS; 2023-06-06)
PROC: 02HV33Z Insertion of Infusion Device into Superior Vena Cava, Percutaneous Approach (ICD-10-PCS; 2023-06-13)
PROC: B548ZZA Ultrasonography of Superior Vena Cava, Guidance (ICD-10-PCS; 2023-06-13)
PROC: 3E0336Z Introduction of Nutritional Substance into Peripheral Vein, Percutaneous Approach (ICD-10-PCS; 2023-06-17)
DX: S06.9X9A Unspecified intracranial injury with loss of consciousness of unspecified duration, initial encounter (principal); G93.41 Metabolic encephalopathy; J69.0 Pneumonitis due to inhalation of food and vomit; J96.01 Acute respiratory failure with hypoxia; S22.42XA Multiple fractures of ribs, left side, initial encounter for closed fracture; S27.0XXA Traumatic pneumothorax, initial encounter; S12.000A Unspecified displaced fracture of first cervical vertebra, initial encounter for closed fracture; S12.200A Unspecified displaced fracture of third cervical vertebra, initial encounter for closed fracture; S12.300A Unspecified displaced fracture of fourth cervical vertebra, initial encounter for closed fracture; S12.500A Unspecified displaced fracture of sixth cervical vertebra, initial encounter for closed fracture; E87.20 Acidosis, unspecified; J98.11 Atelectasis; E87.0 Hyperosmolality and hypernatremia; K56.7 Ileus, unspecified; D61.818 Other pancytopenia; F10.129 Alcohol abuse with intoxication, unspecified; S01.01XA Laceration without foreign body of scalp, initial encounter; S02.2XXA Fracture of nasal bones, initial encounter for closed fracture; S20.319A Abrasion of unspecified front wall of thorax, initial encounter; S30.811A Abrasion of abdominal wall, initial encounter; E66.01 Morbid (severe) obesity due to excess calories; E87.8 Other disorders of electrolyte and fluid balance, not elsewhere classified; S14.3XXA Injury of brachial plexus, initial encounter; F41.9 Anxiety disorder, unspecified; K31.84 Gastroparesis; V29.99XA Rider (driver) (passenger) of other motorcycle injured in unspecified traffic accident, initial encounter; Y92.89 Other specified places as the place of occurrence of the external cause; Z68.33 Body mass index [BMI] 33.0-33.9, adult
CPT/HCPCS: 31624; 32554; 36415; 36416; 36430; 36569; 36600; 70450; 70496; 70498; 70551; 71045; 71260; 72020; 72125; 72141; 72170; 74018; 74177; 74250; 80048; 80053; 80061; 80306; 80307; 81001; 82533; 82550; 82805; 83605; 83735; 84100; 84134; 85025; 85610; 85730; 86850; 86900; 86901; 87040; 87070; 87077; 87086; 87186; 87205; 87324; 87449; 90471; 90715; 94002; 94003; 94640; 96365; 96366; 96367; 96375; 97139; 99292; C1751; C9113; G0390; J0360; J0456; J0692; J1364; J1650; J1940; J2060; J2212; J2250; J2270; J2272; J2405; J2543; J2704; J2710; J2765; J3010; J3411; J3475; J3480; J3490; J7030; J7042; J7050; J7070; J7620; P9016; P9045; P9048; Q9963; Q9967; S0028

== ENCOUNTER 2023-07-18 09:25 | Outpatient (CLI) | payer OTHER | END 2023-07-18 09:26 | disposition home or self-care (01) | LOC: CT 09:25 | PROVIDERS: ATTEND Neurological Surgery | DX: S12.000A Unspecified displaced fracture of first cervical vertebra, initial encounter for closed fracture (principal); S12.100A Unspecified displaced fracture of second cervical vertebra, initial encounter for closed fracture; S12.200A Unspecified displaced fracture of third cervical vertebra, initial encounter for closed fracture; S12.300A Unspecified displaced fracture of fourth cervical vertebra, initial encounter for closed fracture; S12.500A Unspecified displaced fracture of sixth cervical vertebra, initial encounter for closed fracture; M43.8X2 Other specified deforming dorsopathies, cervical region | CPT/HCPCS: 72125 ==

== ENCOUNTER 2023-09-13 09:45 | Outpatient (CLI) | payer SELFPAY | END 2023-09-13 09:46 | disposition home or self-care (01) | LOC: RAD 09:45 | PROVIDERS: ATTEND Neurological Surgery | DX: S12.200D Unspecified displaced fracture of third cervical vertebra, subsequent encounter for fracture with routine healing (principal) | CPT/HCPCS: 72040 ==

== ENCOUNTER 2023-12-20 10:41 | Outpatient (CLI) | payer OTHER, SELFPAY | END 2023-12-20 10:42 | disposition home or self-care (01) | LOC: RAD 10:41 | PROVIDERS: ATTEND Neurological Surgery | DX: S12.200A Unspecified displaced fracture of third cervical vertebra, initial encounter for closed fracture (principal); M47.812 Spondylosis without myelopathy or radiculopathy, cervical region; M50.322 Other cervical disc degeneration at C5-C6 level; M50.323 Other cervical disc degeneration at C6-C7 level; M47.891 Other spondylosis, occipito-atlanto-axial region | CPT/HCPCS: 72040 ==

== ENCOUNTER 2024-08-07 13:31 | Outpatient (CLI) | payer OTHER | END 2024-08-07 13:32 | disposition home or self-care (01) | LOC: CT 13:31 | PROVIDERS: ATTEND Neurological Surgery | DX: S12.000D Unspecified displaced fracture of first cervical vertebra, subsequent encounter for fracture with routine healing (principal); M47.812 Spondylosis without myelopathy or radiculopathy, cervical region | CPT/HCPCS: 72125 ==